=== PATIENT | female | born 1985 | race Caucasian/White ===

== ENCOUNTER 2017-03-20 09:12 | Inpatient (IN) | payer OTHER ==
[2017-03-20] MEDS ORDERED: RX INFO: IV CONTRAST WAS GIVEN 1 EACH MISC MISCELLANE PRN (09:44)
[2017-03-20] MEDS ORDERED: HYDROmorphone 2 MG/ML 1 ML SYRINGE IVP STA (09:47)
[2017-03-20] MEDS ORDERED: ONDANSETRON 4 MG/2 ML VIAL IVP STA (09:47)
[2017-03-20 09:55] LABS: Basophils % (A) 0 %; Eosinophils # (A) 0.1 k/uL (0-0.7); Eosinophils % (A) 1 %; HCT 37.3 % (34.0-46.0); HGB 12.1 gm/dL (11.4-16.0); Lymphocytes # (A) 1.1 k/uL (1.0-4.8); Lymphocytes % (A) 13 %; MCH 28.7 pg (25.0-35.0); MCHC 32.6 g/dL (31.0-37.0); MCV 88.2 fL (80.0-100.0); Mean Platelet Volume 7.9; Monocytes # (A) 0.4 k/uL (0-1.0); Monocytes % (A) 5 %; Neutrophils # (A) 7.1 k/uL (1.3-7.7); Neutrophils % (A) 81 %; Platelet Count 217 k/uL (150-450); RBC 4.22 m/uL (3.80-5.40); WBC 8.8 k/uL (3.8-10.6)
[2017-03-20 10:07] LABS: Partial Thromboplastin Time 22.5 sec (22.0-30.0); Prothrombin Time 10.1 sec (9.0-12.0)
[2017-03-20 10:11] LABS: ALT 30 U/L (9-52); AST 16 U/L (14-36); Albumin 3.8 g/dL (3.5-5.0); Alkaline Phosphatase 61 U/L (38-126); Anion Gap 8 mmol/L; Blood Urea Nitrogen 11 mg/dL (7-17); Calcium 9.2 mg/dL (8.4-10.2); Carbon Dioxide 30 mmol/L (22-30); Chloride 103 mmol/L (98-107); Glucose 99 mg/dL (74-99); Magnesium 1.9 mg/dL (1.6-2.3); Potassium 4.1 mmol/L (3.5-5.1); Sodium 141 mmol/L (137-145); Total Bilirubin 0.9 mg/dL (0.2-1.3); Total Protein 6.4 g/dL (6.3-8.2)
[2017-03-20 10:18] LABS: Creatine Kinase 37 U/L (30-135)
--- NOTE | 2017-03-20 10:20 | ED ---
General Adult HPI <HarshadAbimael - Last Filed: 03/20/17 11:55> - General Source: patient, RN notes reviewed Mode of arrival: EMS Limitations: no limitations <Jose Vo - Last Filed: 03/20/17 11:59> - General Chief complaint: Shortness of Breath Stated complaint: Right Flank Pain Time Seen by Provider: 03/20/17 09:31 - History of Present Illness Initial comments: Patient is a 31-year-old female who presents emergency room today by EMS, with chief complaint of right-sided chest pain. Patient does admit that she woke up this morning having increased pain to the right side of the chest. She admits that she broke her ankle approximately one week ago had a have surgery for fixation that was done at [facility] and [place]. She states that her is away for work so she is appear in [place] her parents. She states that she did take pain medication last night has not helped with his pain is new. Patient doesn't feel short of breath. She denies any other complaints or symptoms. Patient denies any recent fever, chills, abdominal pain , nausea or vomiting, numbness or tingling, dysuria or hematuria, constipation or diarrhea, headaches or visual changes, or any other complaints. (Jose Vo) - Related Data Home Medications Medication Instructions Recorded Confirmed Docusate [Colace] 100 mg PO DAILY PRN 03/20/17 03/20/17 Polyethylene Glycol 3350 [Miralax] 17 gm PO DAILY PRN 03/20/17 03/20/17 oxyCODONE-APAP 5-325MG [Percocet 1 - 2 tab PO Q4-6H PRN 03/20/17 03/20/17 5-325 mg] Allergies Allergy/AdvReac Type Severity Reaction Status Date / Time No Known Allergies Allergy Verified 03/20/17 09:54 Review of Systems ROS Other: All systems not noted in ROS Statement are negative. <Abimael Patricia - Last Filed: 03/20/17 11:55> ROS Other: All systems not noted in ROS Statement are negative. <Jose Vo - Last Filed: 03/20/17 11:59> ROS Statement: Those systems with pertinent positive or pertinent negative responses have been documented in the HPI. Past Medical History Past Medical History: No Reported History History of Any Multi-Drug Resistant Organisms: None Reported Past Surgical History: Orthopedic Surgery Past Psychological History: No Psychological Hx Reported Smoking Status: Former smoker Past Alcohol Use History: None Reported Past Drug Use History: None Reported <Jose Vo - Last Filed: 03/20/17 11:59> General Exam <Abimael Patricia - Last Filed: 03/20/17 11:55> Limitations: no limitations <TavoJose - Last Filed: 03/20/17 11:59> - General Exam Comments Initial Comments: General: The patient is awake and alert, in no distress, and does not appear acutely ill. Eye: Pupils are equal, round and reactive to light, extra-ocular movements are intact. No nystagmus. There is normal conjunctiva bilaterally. No signs of icterus. Ears, nose, mouth and throat: There are moist mucous membranes and no oral lesions. Neck: The neck is supple, there is no tenderness or JVD. Cardiovascular: Tachycardic. No murmur, rub or gallop is appreciated. Respiratory: Lungs are clear to auscultation, respirations are non-labored, breath sounds are equal. No wheezes, stridor, rales, or rhonchi. Gastrointestinal: Soft, non-distended, non-tender abdomen without masses or organomegaly noted. There is no rebound or guarding present. No CVA tenderness. Bowel sounds are unremarkable. Musculoskeletal: Normal ROM, no tenderness. Strength 5/5. Sensation intact. Pulses equal bilaterally 2+. Neurological: A&O x 3. CN II-XII intact, There are no obvious motor or sensory deficits. Coordination appears grossly intact. Speech is normal. Skin: Skin is warm and dry and no rashes or lesions are noted. Psychiatric: Cooperative, appropriate mood & affect, normal judgment. (Jose Vo) Course <Abimael Patricia - Last Filed: 03/20/17 11:55> <Jose Vo - Last Filed: 03/20/17 11:59> Vital Signs 03/20/17 03/20/17 03/20/17 09:24 09:56 11:00 Temperature 98.3 F Pulse Rate 105 H 102 H 118 H Respiratory 20 20 26 H Rate Blood Pressure 122/82 125/71 122/77 O2 Sat by Pulse 100 99 97 Oximetry - Reevaluation(s) Reevaluation #1: 01/18/18 11:55 PA supervision: I did personally do a [id number] evaluation the patient did discuss the findings her and her family are is present. I also did discuss case with the admitting physician and with the radiologist. Patient does have evidence of bilateral pulmonary emboli. She is slightly tachycardic but otherwise hemodynamically stable. I do agree with the assessment and plan. ( Abimael Patricia) Medical Decision Making - Lab Data Result diagrams: 03/20/17 09:35 03/20/17 09:35 <Abimael Patricia - Last Filed: 03/20/17 11:55> - Lab Data Result diagrams: 03/20/17 09:35 03/20/17 09:35 <Jose Vo - Last Filed: 03/20/17 11:59> - Medical Decision Making Patient's CT reviewed and does show evidence for bilateral. He has been started on heparin. The emergency room. Patient will be admitted to the hospital. She is aware of the plan states her family. (Jose Vo) - Lab Data Lab Results 03/20/17 03/20/17 03/20/17 Range/Units 09:35 09:35 09:35 WBC 8.8 (3.8-10.6) k/uL RBC 4.22 (3.80-5.40) m/uL Hgb 12.1 (11.4-16.0) gm/dL Hct 37.3 (34.0-46.0) % MCV 88.2 (80.0-100.0) fL MCH 28.7 (25.0-35.0) pg MCHC 32.6 (31.0-37.0) g/dL RDW 13.0 (11.5-15.5) % Plt Count 217 (150-450) k/uL Neutrophils % 81 % Lymphocytes % 13 % Monocytes % 5 % Eosinophils % 1 % Basophils % 0 % Neutrophils # 7.1 (1.3-7.7) k/uL Lymphocytes # 1.1 (1.0-4.8) k/uL Monocytes # 0.4 (0-1.0) k/uL Eosinophils # 0.1 (0-0.7) k/uL Basophils # 0.0 (0-0.2) k/uL PT (9.0-12.0) sec INR (<1.2) APTT (22.0-30.0) sec Sodium 141 (137-145) mmol/L Potassium 4.1 (3.5-5.1) mmol/L Chloride 103 (98-107) mmol/L Carbon Dioxide 30 (22-30) mmol/L Anion Gap 8 mmol/L BUN 11 (7-17) mg/dL Creatinine 0.67 (0.52-1.04) mg/dL Est GFR (MDRD) Af Amer >60 (>60 ml/min/1.73 sqM) Est GFR (MDRD) Non-Af >60 (>60 ml/min/1.73 sqM) Glucose 99 (74-99) mg/dL Calcium 9.2 (8.4-10.2) mg/dL Magnesium 1.9 (1.6-2.3) mg/dL Total Bilirubin 0.9 (0.2-1.3) mg/dL AST 16 (14-36) U/L ALT 30 (9-52) U/L Alkaline Phosphatase 61 (38-126) U/L Total Creatine Kinase 37 (30-135) U/L CK-MB (CK-2) <0.2 (0.0-2.4) ng/mL CK-MB (CK-2) Rel Index Troponin I <0.012 (0.000-0.034) ng/mL Total Protein 6.4 (6.3-8.2) g/dL Albumin 3.8 (3.5-5.0) g/dL 03/20/17 Range/Units 09:35 WBC (3.8-10.6) k/uL RBC (3.80-5.40) m/uL Hgb (11.4-16.0) gm/dL Hct (34.0-46.0) % MCV (80.0-100.0) fL MCH (25.0-35.0) pg MCHC (31.0-37.0) g/dL RDW (11.5-15.5) % Plt Count (150-450) k/uL Neutrophils % % Lymphocytes % % Monocytes % % Eosinophils % % Basophils % % Neutrophils # (1.3-7.7) k/uL Lymphocytes # (1.0-4.8) k/uL Monocytes # (0-1.0) k/uL Eosinophils # (0-0.7) k/uL Basophils # (0-0.2) k/uL PT 10.1 (9.0-12.0) sec INR 1.0 (<1.2) APTT 22.5 (22.0-30.0) sec Sodium (137-145) mmol/L Potassium (3.5-5.1) mmol/L Chloride (98-107) mmol/L Carbon Dioxide (22-30) mmol/L Anion Gap mmol/L BUN (7-17) mg/dL Creatinine (0.52-1.04) mg/dL Est GFR (MDRD) Af Amer (>60 ml/min/1.73 sqM) Est GFR (MDRD) Non-Af (>60 ml/min/1.73 sqM) Glucose (74-99) mg/dL Calcium (8.4-10.2) mg/dL Magnesium (1.6-2.3) mg/dL Total Bilirubin (0.2-1.3) mg/dL AST (14-36) U/L ALT (9-52) U/L Alkaline Phosphatase (38-126) U/L Total Creatine Kinase (30-135) U/L CK-MB (CK-2) (0.0-2.4) ng/mL CK-MB (CK-2) Rel Index Troponin I (0.000-0.034) ng/mL Total Protein (6.3-8.2) g/dL Albumin (3.5-5.0) g/dL Disposition <Abimael Patricia - Last Filed: 03/20/17 11:55> Time of Disposition: 11:38 <Jose Vo - Last Filed: 03/20/17 11:59> Clinical Impression: Bilateral pulmonary embolism Disposition: ADMITTED IP TO THIS [facility] Condition: Stable Referrals: None,Stated [Primary Care Provider] - 1-2 days
[2017-03-20 10:31] LABS: Creatine Kinase MB <0.2 ng/mL (0.0-2.4); Troponin I <0.012 ng/mL (0.000-0.034)
--- NOTE | 2017-03-20 11:05 | CT ---
EXAMINATION TYPE: CT angio chest DATE OF EXAM: 03/20/2017 COMPARISON: NONE HISTORY: Right sided lower chest pain with severe shortness of breath today. Post OP Ankle surgery o n 03/17/17 CT DLP: 161.2 mGycm CONTRAST: CT chest with contrast and 3D reconstruction with MIP imaging is performed with IV Contrast, patient injected with 100 mL of Omnipaque 300. Contrast-enhanced CT of the chest was performed through the course of the pulmonary arteries with reymundo g and mediastinal window settings submitted. 3D reconstruction with MIP imaging was also performed. PULMONARY ARTERIES: Bilateral pulmonary embolism right greater than left. Involvement of the right ma in pulmonary artery as well as secondary and tertiary branches. On the left there is mild involvement of secondary and tertiary branches to the left lower lobe. Minimal involvement right upper lobe and no involvement left upper lobe. No saddle component identified. LUNGS: Small right-sided pleural effusion. Patchy infiltrate right lower lobe. Atelectasis left lower lobe. Groundglass opacity right upper lobe. MEDIASTINUM: Thoracic aorta is of normal caliber . The heart is not enlarged. No evidence for media stinal mass. No mediastinal lymph nodes greater than 1cm. HILAR STRUCTURES: No evidence for mass. No hilar lymph nodes greater than 1 cm. UPPER ABDOMEN: No significant abnormality is seen. IMPRESSION: 1. Bilateral pulmonary embolism right greater than left with moderate involvement on the right and m ild involvement on the left. Scattered areas of infiltrate right lower lobe with left basilar atelect asis and small effusions.
[2017-03-20] MEDS ORDERED: HEPARIN SODIUM,PORCINE 5,000 UNIT/ML 1 ML VIAL IV STA (11:10)
[2017-03-20] MEDS: SODIUM CHLORIDE 0.9% 500 ML IV SCH (11:30)
[2017-03-20] MEDS: HEPARIN SOD,PORK IN 0.45% NACL 25,000 UNIT in 0.45% NACL 1 500ML.BAG IV SCH (11:31)
[2017-03-20] MEDS ORDERED: HYDROmorphone 1 MG/ML 1 ML SYRINGE IVP PRN (11:59)
[2017-03-20] MEDS ORDERED: ACETAMINOPHEN TAB 325 MG TAB PO PRN (11:59)
[2017-03-20] MEDS ORDERED: NALOXONE 0.4 MG/ML 1 ML VIAL IV PRN (11:59)
[2017-03-20] MEDS ORDERED: LORazepam 2 MG/ML INJ IV PRN (11:59)
[2017-03-20] MEDS ORDERED: ONDANSETRON 4 MG/2 ML VIAL IVP PRN (11:59)
[2017-03-20] MEDS: HYDROmorphone 0.5 MG/0.5 ML SYRINGE IVP PRN ×4 (12:54→22:47)
--- NOTE | 2017-03-20 15:05 | P.HPIM ---
History of Present Illness H&P Date: 03/20/17 Chief Complaint: Right-sided chest pain Patient is a 31-year-old female with a known history of recent right lower activity bimalleolar fracture surgery on 03/17/2017 came to ER with complaints of right-sided chest pain. Patient woke up this morning and felt chest discomfort and pain along with deep breathing. No fever no chills. No cough or sputum production. Patient says that she fell on the ice on 12 of March and sustained bimalleolar fracture. Patient had surgery done on 17 of March at [facility] and was sent home with pain medications. Patient denied taking any aspirin or warfarin at home. Patient is currently staying with her parents house. Otherwise patient denied any nausea vomiting or abdominal pain. She denies any other complaints or symptoms. Patient denies any recent fever, chills, abdominal pain, nausea or vomiting, numbness or tingling, dysuria or hematuria, constipation or diarrhea, headaches or visual changes, or any other complaints. Denied any history of blood clots in the family. CT angiogram showed bilateral pulmonary embolism right greater than left with a moderate involvement in the right and mid involvement on the left. Scattered areas of infiltrate right lower lobe with the left basilar atelectasis and small effusions. Review of Systems Constitutional: Patient denies any fever or chills . No generalized weakness or weight loss. Abdomen: Patient denied nausea vomiting and diarrhea and abdominal pain. Cardiovascular: Patient does have chest pain or shortness of breath. No palpitations no leg swelling Respiratory: patient denied any cough is from production. No shortness of breath Neurologic: Patient denied any numbness or tingling headache. Musculoskeletal: Patient denies any complaints of joint swelling or deformity. Skin: Negative Psychiatric: Negative Endocrine: No heat or cold intolerance. No recent weight gain. Genitourinary: No dysuria or hematuria. All other 14 point ROS negative except the above Past Medical History Past Medical History: No Reported History Additional Past Medical History / Comment(s): 02/28/17 Pt gave and baby was a stillborn, 03/12/17 R ankle fracture with surgical repair on 03/17/17, recent constipation-pt states no BM since 03/12/17. History of Any Multi-Drug Resistant Organisms: None Reported Past Surgical History: Orthopedic Surgery Additional Past Surgical History / Comment(s): 1/15/18 ORIF R ankle at [facility] in [place], R knee arthroscopy, wisdom teeth extractions, sinus surgery. Past Anesthesia/Blood Transfusion Reactions: No Reported Reaction Past Psychological History: No Psychological Hx Reported Additional Psychological History / Comment(s): Pt resides with her spouse and 2 children. Her spouse is in [facility] (he is a bed manager). She is currently staying with her parents here in [place] due to recently delivering a stillborn baby and fracturing her ankle then had surgery. Smoking Status: Never smoker Past Alcohol Use History: None Reported Past Drug Use History: None Reported - Past Family History Father Family Medical History: No Reported History Additional Family Medical History / Comment(s): Father is healthy Mother Family Medical History: No Reported History Additional Family Medical History / Comment(s): Mother is healthy. Medications and Allergies Home Medications Medication Instructions Recorded Confirmed Type Docusate [Colace] 100 mg PO DAILY PRN 03/20/17 03/20/17 History Polyethylene Glycol 3350 [Miralax] 17 gm PO DAILY PRN 03/20/17 03/20/17 History oxyCODONE-APAP 5-325MG [Percocet 1 - 2 tab PO Q4-6H PRN 03/20/17 03/20/17 History 5-325 mg] Allergies Allergy/AdvReac Type Severity Reaction Status Date / Time No Known Allergies Allergy Verified 03/20/17 09:54 Physical Exam Vitals: Vital Signs Temp Pulse Resp BP Pulse Ox 03/20/17 14:29 109 H 18 109/66 98 03/20/17 12:48 111 H 18 114/77 98 03/20/17 11:00 118 H 26 H 122/77 97 03/20/17 09:56 102 H 20 125/71 99 03/20/17 09:24 98.3 F 105 H 20 122/82 100 Intake and Output 03/19/17 03/20/17 03/20/17 22:59 06:59 14:59 Other: Weight 71.668 kg Patient Weight 03/21/17 06:59 Weight 71.668 kg PHYSICAL EXAMINATION: Patient is lying in the bed comfortably, no acute distress, awake alert and oriented.. HEENT: Normocephalic. Neck is supple. Pupils reactive. Nostrils clear. Oral cavity is moist. Ears reveal no drainage. Neck reveals no JVD, carotid bruits, or thyromegaly. CHEST EXAMINATION: Trachea is central. Symmetrical expansion. Lung kruse clear to auscultation and percussion. CARDIAC: Normal S1, S2 with no gallops. No murmurs , tachycardic ABDOMEN: Soft. Bowel sounds normal. No organomegaly. No abdominal bruits. Extremities: reveal no edema. No clubbing or cyanosis. Right lower activity cast in place Neurologically awake, alert, oriented x3 with well-coordinated movements. No focal deficits noted Skin: No rash or skin lesions. Psychiatric: Cooperative. Nonsuicidal Musculoskeletal: No joint swelling or deformity. Normal range of motion. Results CBC & Chem 7: 03/20/17 09:35 03/20/17 09:35 Thrombosis Risk Factor Assmnt - Choose All That Apply Any of the Below Risk Factors Present?: Yes Each Factor Represents 1 point: or Other Risk Factors: Yes Each Risk Factor Represents 3 Points: History of DVT/PE Other congenital or acquired thrombophilia - If yes, enter type in comment: No Each Risk Factor Represents 5 Points: Hip, pelvis, or leg fracture (< 1 month) Thrombosis Risk Factor Assessment Total Risk Factor Score: 9 Thrombosis Risk Factor Assessment Level: High Risk Assessment and Plan Assessment: Provoked Acute bilateral pulmonary embolism. Right greater than left. Accidental Fall and Recent right lower activity bimalleolar fracture status post repair on 03/17/2017 Recent miscarriage about 10 days back. Constipation Plan: Patient will be continued on heparin IV. Continue with pain medications and bowel regimen. Will follow closely. Further recommendations based on clinical course. Time with Patient: Greater than 30
[2017-03-20] MEDS ORDERED: BISACODYL 10 MG SUPP RECTAL PRN (17:45)
[2017-03-20] MEDS: DOCUSATE 100 MG CAP PO SCH (20:45)
[2017-03-21] MEDS: HYDROmorphone 0.5 MG/0.5 ML SYRINGE IVP PRN ×7 (02:37→21:15)
[2017-03-21] MEDS: HEPARIN SOD,PORK IN 0.45% NACL 25,000 UNIT in 0.45% NACL 1 500ML.BAG IV SCH ×2 (06:26→23:30)
[2017-03-21] MEDS: DOCUSATE 100 MG CAP PO SCH ×2 (07:30→20:50)
[2017-03-21] MEDS: POLYETHYLENE GLYCOL 3350 17 GM POWD.PACK PO SCH (07:30)
[2017-03-21 07:46] LABS: Basophils % (A) 0 %; Eosinophils # (A) 0.1 k/uL (0-0.7); Eosinophils % (A) 1 %; HCT 36.6 % (34.0-46.0); HGB 11.8 gm/dL (11.4-16.0); Lymphocytes # (A) 1.2 k/uL (1.0-4.8); Lymphocytes % (A) 13 %; MCH 28.5 pg (25.0-35.0); MCHC 32.3 g/dL (31.0-37.0); MCV 88.2 fL (80.0-100.0); Mean Platelet Volume 7.7; Monocytes # (A) 0.7 k/uL (0-1.0); Monocytes % (A) 7 %; Neutrophils # (A) 7.4 k/uL (1.3-7.7); Neutrophils % (A) 78 %; Platelet Count 210 k/uL (150-450); RBC 4.15 m/uL (3.80-5.40); RDW 12.8 % (11.5-15.5); WBC 9.5 k/uL (3.8-10.6)
[2017-03-21 07:50] LABS: INR 1.1 (<1.2); Partial Thromboplastin Time 44.1 sec (22.0-30.0); Prothrombin Time 10.9 sec (9.0-12.0)
[2017-03-21 07:56] LABS: ALT 27 U/L (9-52); AST 20 U/L (14-36); Albumin 3.6 g/dL (3.5-5.0); Alkaline Phosphatase 63 U/L (38-126); Anion Gap 7 mmol/L; Blood Urea Nitrogen 7 mg/dL (7-17); Calcium 9.1 mg/dL (8.4-10.2); Carbon Dioxide 29 mmol/L (22-30); Chloride 100 mmol/L (98-107); Glucose 102 mg/dL (74-99); Potassium 4.3 mmol/L (3.5-5.1); Sodium 136 mmol/L (137-145); Total Bilirubin 1.7 mg/dL (0.2-1.3); Total Protein 6.2 g/dL (6.3-8.2)
[2017-03-21] MEDS ORDERED: HEPARIN SODIUM,PORCINE 5,000 UNIT/ML 1 ML VIAL IV STA (08:31)
--- NOTE | 2017-03-21 10:26 | US ---
EXAMINATION TYPE: US venous doppler duplex LE BI DATE OF EXAM: 03/21/2017 10:17 AM COMPARISON: NONE CLINICAL HISTORY: 31-year-old female rule out DVT, hx of pulmonary embolism SIDE PERFORMED: Bilateral TECHNIQUE: The lower extremity deep venous system is examined utilizing real time linear array sonog tona with graded compression, doppler sonography and color-flow sonography. FINDINGS: VESSELS IMAGED: External Iliac Vein (EIV) Common Femoral Vein Deep Femoral Vein Greater Saphenous Vein * Femoral Vein Popliteal Vein Small Saphenous Vein * Proximal Calf Veins (* superficial vessels) Right Leg: Negative for DVT-unable to visualize distal pop vein, or proximal calf due to splint on r ight lower leg. Left Leg: Negative for DVT IMPRESSION: 1. Right lower extremity: Unable to visualize the lower popliteal vein or upper calf veins due to pat ient's splint. Otherwise, no evidence for DVT within the remaining proximal aspect of the extremity. 2. Left lower extremity: No evidence for DVT imaged from the groin to the upper calf.
--- NOTE | 2017-03-21 11:40 | ECHOF ---
Referral Reason:rule out RV strain, Hx of edel PE's MEASUREMENTS -------- HEIGHT: 172.7 cm WEIGHT: 71.7 kg BP: 109/71 RVIDd: 2.1 cm (< 3.3) IVSd: 0.7 cm (0.6 - 1.1) LVIDd: 4.4 cm (3.9 - 5.3) LVPWd: 0.8 cm (0.6 - 1.1) IVSs: 1.3 cm LVIDs: 2.7 cm LVPWs: 1.4 cm LAESV Index (A-L): 15.18 ml/m Ao Diam: 3.2 cm (2.0 - 3.7) AV Cusp: 1.9 cm (1.5 - 2.6) LA Diam: 2.2 cm (2.7 - 3.8) MV E Elier: 0.91 m/s MV DecT: 245 ms MV A Elier: 0.72 m/s MV E/A Ratio: 1.26 RAP: 5.00 mmHg RVSP: 25.69 mmHg FINDINGS -------- Sinus rhythm. This was a technically adequate study. The left ventricular size is normal. Left ventricular wall thickness is normal. Overall left vent ricular systolic function is normal with, an EF between 55 - 60 %. The right ventricle is normal in size and function. Normal LA size by volume 22+/-6 ml/m2. The right atrium is normal in size. The aortic valve is trileaflet, and appears structurally normal. No aortic stenosis or regurgitation. The mitral valve leaflets are mildly thickened. There is trace to mild mitral regurgitation. Trace tricuspid regurgitation present. Right ventricular systolic pressure is normal at < 35 mmHg. There is no evidence of pulmonary hypertension. Trace/mild (physiologic) pulmonic regurgitation. The aortic root size is normal. Normal inferior vena cava with normal inspiratory collapse consistent with estimated right atrial pre ssure of 5 mmHg. The pericardium is normal. There is no pericardial effusion. CONCLUSIONS -------- 1. Sinus rhythm. 2. This was a technically adequate study. 3. The left ventricular size is normal. 4. Left ventricular wall thickness is normal. 5. Overall left ventricular systolic function is normal with, an EF between 55 - 60 %. 6. Normal LA size by volume 22+/-6 ml/m2. 7. The aortic valve is trileaflet, and appears structurally normal. No aortic stenosis or regurgitati on. 8. The mitral valve leaflets are mildly thickened. 9. There is trace to mild mitral regurgitation. 10. Trace tricuspid regurgitation present. 11. Right ventricular systolic pressure is normal at < 35 mmHg. 12. There is no evidence of pulmonary hypertension. 13. Trace/mild (physiologic) pulmonic regurgitation. 14. The aortic root size is normal. 15. There is no pericardial effusion. TEST AND BALANCE ENGINEER: Harman Ledesma RDCS
[2017-03-21] MEDS: SODIUM CHLORIDE 0.9% 500 ML IV SCH (11:41)
--- NOTE | 2017-03-21 12:45 | P.CNPUL ---
History of Present Illness Consult date: 03/21/17 Requesting physician: Noah Valero Reason for consult: dyspnea, chest pain, abnormal CXR/CT Chief complaint: Acute onset right-sided chest pain, dyspnea History of present illness: Cari is a 31-year-old white female patient, who presented to the emergency department on 03/20/2017 at 0912 in the morning per EMS, with complaints of acute onset right-sided chest pain that was exacerbated by deep inspiration sharp in nature and relieved by shallow breathing. She also felt very dyspneic. Patient states that on 03/12/2017 she fell on ice and broke her right ankle, and on 03/17/2017 she had it surgically repaired at [facility] in [place] and was discharged home on 03/18/2017. She states there was no anticoagulation prescribed, patient was sent home on stool softeners and pain medications. No aspirin. Also on 02/28/2017 patient had a miscarriage, she was 18 weeks along, she went for her regular checkup, but there was no heartbeat, patient was then induced. The baby was estimated to have at 15 weeks. Patient's vaginal bleeding had since significantly decreased, currently down to just slight spotting. She was supposed to have a follow-up appointment with her [facility] this week. Is not aware of any clotting disorders in her family , is a lifetime nonsmoker. Patient is also complaining of significant constipation, has not had a bowel movement since before surgery. CTA chest on showed bilateral pulmonary embolism right greater than the left with moderate involvement of the right and mild involvement on the left. Scattered areas of infiltrate right lower lobe with a left basilar atelectasis and small effusions. EKG showed sinus tachycardia with a rate of 109. Patient was started on IV heparin, Percocet, IV Dilaudid, MiraLAX, and Dulcolax suppository along with Colace, and admitted to medical surgical floor for further treatment. She is maintaining normal blood pressures, 109/71, she is on 2 L per nasal cannula with O2 sat at 99%. She is afebrile. Her respirations are shallow, there is significant right sided chest pain which is being medicated with IV Dilaudid. Review of Systems All systems: negative Constitutional: Denies chills, Denies fever Eyes: denies blurred vision, denies pain Ears, nose, mouth and throat: Denies headache, Denies sore throat Cardiovascular: Denies chest pain, Denies shortness of breath Respiratory: Reports dyspnea, Reports pain on inspiration, Denies cough Gastrointestinal: Denies abdominal pain, Denies diarrhea, Denies nausea, Denies vomiting Genitourinary: Denies dysuria, Denies hematuria Musculoskeletal: Denies myalgias Integumentary: Denies pruritus, Denies rash Neurological: Denies numbness, Denies weakness Psychiatric: Denies anxiety, Denies depression Endocrine: Denies fatigue, Denies weight change Past Medical History Past Medical History: No Reported History Additional Past Medical History / Comment(s): 02/28/17 Pt gave and baby was a stillborn, 03/12/17 R ankle fracture with surgical repair on 03/17/17, recent constipation-pt states no BM since 03/12/17. History of Any Multi-Drug Resistant Organisms: None Reported Past Surgical History: Orthopedic Surgery Additional Past Surgical History / Comment(s): 03/17/17 ORIF R ankle at [facility] in [place], R knee arthroscopy, wisdom teeth extractions, sinus surgery. Past Anesthesia/Blood Transfusion Reactions: No Reported Reaction Past Psychological History: No Psychological Hx Reported Additional Psychological History / Comment(s): Pt resides with her spouse and 2 children. Her spouse is in [facility] (he is a wood drill operator). She is currently staying with her parents here in [place] due to recently delivering a stillborn baby and fracturing her ankle then had surgery. Smoking Status: Never smoker Past Alcohol Use History: None Reported Past Drug Use History: None Reported - Past Family History Father Family Medical History: No Reported History Additional Family Medical History / Comment(s): Father is healthy Mother Family Medical History: No Reported History Additional Family Medical History / Comment(s): Mother is healthy. Medications and Allergies Home Medications Medication Instructions Recorded Confirmed Type Docusate [Colace] 100 mg PO DAILY PRN 03/20/17 03/20/17 History Polyethylene Glycol 3350 [Miralax] 17 gm PO DAILY PRN 03/20/17 03/20/17 History oxyCODONE-APAP 5-325MG [Percocet 1 - 2 tab PO Q4-6H PRN 03/20/17 03/20/17 History 5-325 mg] Allergies Allergy/AdvReac Type Severity Reaction Status Date / Time No Known Allergies Allergy Verified 03/20/17 09:54 Physical Exam Vitals: Vital Signs Temp Pulse Pulse Resp BP BP Pulse Ox 03/21/17 07:00 98.2 F 95 16 109/71 99 03/20/17 23:00 98.5 F 100 16 108/67 96 03/20/17 14:56 98.7 F 111 H 18 114/73 100 03/20/17 14:29 109 H 18 109/66 98 03/20/17 12:48 111 H 18 114/77 98 Intake and Output 03/20/17 03/21/17 03/21/17 22:59 06:59 14:59 Intake Total 242.75 465.3 51.17 Balance 242.75 465.3 51.17 Intake: Intake, IV Titration 242.75 465.3 51.17 Amount Heparin Sod,Pork in 0.45% 182.75 305.3 51.17 NaCl 25,000 unit In 0.45 % NaCl 1 500ml.bag @ 18 UNITS/KG/HR 25.8 mls/hr IV .[id number] [facility] Rx#: [id number] Sodium Chloride 0.9% 500 60 160 ml @ 20 mls/hr IV .Q24H [facility] Rx#:[id number] Other: Voiding Method Bedpan Bedpan Bedside Commode Bedpan # Voids 1 1 GENERAL EXAM: Alert, pleasant, 31-year-old white female, in mild distress, from right-sided sharp pain exacerbated by deep inspiration. Her respirations are shallow and tachypneic. Patient is observed to be dyspneic with conversation HEAD: Normocephalic/atraumatic. EYES: Normal reaction of pupils, equal size. Conjunctiva pink, sclera white. NOSE: Clear with pink turbinates. THROAT: No erythema or exudates. NECK: No masses, no JVD, no thyroid enlargement, no adenopathy. CHEST: No chest wall deformity. Symmetrical expansion. LUNGS: Diminished air entry on the right, clear on the left, no rhonchi, no wheezes noted. CVS: Regular rate and rhythm, normal S1 and S2, no gallops, no murmurs, no rubs ABDOMEN: Soft, nontender. No hepatosplenomegaly, normal bowel sounds, no guarding or rigidity. EXTREMITIES: No clubbing, no edema, no cyanosis, 2+ pulses and upper and lower extremities. Right lower leg is placed in what appears to be postsurgical half cast. Right foot toes are warm and dry, with immediate capillary refill. MUSCULOSKELETAL: Muscle strength and tone normal. SPINE: No scoliosis or deformity SKIN: No rashes CENTRAL NERVOUS SYSTEM: Alert and oriented -3. No focal deficits, tone is normal in all 4 extremities. PSYCHIATRIC: Alert and oriented -3. Appropriate affect. Intact judgment and insight. Results - Laboratory Findings CBC and BMP: 03/21/17 07:11 03/21/17 07:11 PT/INR, D-dimer PT 10.9 sec (9.0-12.0) 03/21/17 07:11 INR 1.1 (<1.2) 03/21/17 07:11 Abnormal lab findings: Abnormal Labs 03/20/17 03/21/17 03/21/17 17:17 01:07 07:11 APTT 55.8 H 47.8 H 44.1 H Sodium Glucose Total Bilirubin Total Protein 03/21/17 07:11 APTT Sodium 136 L Glucose 102 H Total Bilirubin 1.7 H Total Protein 6.2 L - Diagnostic Findings CT scan - chest: report reviewed Additional studies: Twelve-lead EKG, 2-D echocardiogram, venous Doppler were reviewed Assessment and Plan Plan: Assessment: #1. Acute bilateral pulmonary embolisms, with right sided involvement more than the left. 2-D echo shows no sign of right ventricular strain, right ventricular systolic pressure is normal at less than 35 mmHg, no evidence of pulmonary hypertension, trace tricuspid regurgitation was noted. Patient was started on IV heparin #2. Acute dyspnea and sharp right-sided chest pain, secondary to the above #3. Right bimalleolar ankle fracture, status post ORIF, on 03/17/2017, patient was discharged home on 03/18/2017, with no anticoagulation. Surgery was done at [facility] in [place] #4. Recent miscarriage, at the 18th week of gestation, the baby was estimated to have at the 15th week of gestation. Patient underwent induction and delivery. Denies any other history of miscarriages. Has 2 other healthy, living children #5. Lifetime nonsmoker #6. Opiate-induced constipation Plan: Continue IV heparin, we will check her coverage for Xarelto. If her insurance covers Xarelto we will start her on Xarelto today and stop the heparin after that. We will add DuoNeb nebulized treatments, continue with pain control. Pulmonary toileting, incentive spirometer to the bedside. Echocardiogram and venous Doppler results were reviewed, she is negative for DVT, and there is no evidence of right ventricular strain. I performed a history & physical examination of the patient and discussed their management with my nurse practitioner, Gabriela Guevara. I reviewed the nurse practitioner's note and agree with the documented findings and plan of care. Lung sounds are positive for diminished air entry on the right, clear on the left .The findings and the impression was discussed with the patient. I attest to the documentation by the nurse practitioner. Time with Patient: Greater than 30
[2017-03-21 12:59] VITALS: BMI 24.0
[2017-03-21] MEDS: oxyCODONE-APAP 5-325MG 1 EACH TAB PO PRN (16:40)
[2017-03-21] MEDS ORDERED: HYDROmorphone 0.5 MG/0.5 ML SYRINGE IVP PRN (23:08)
--- NOTE | 2017-03-21 23:09 | P.PN ---
Subjective Progress Note Date: 03/21/17 Principal diagnosis: Bilateral pulmonary embolism Patient is a 31-year-old female with a known history of recent right lower activity bimalleolar fracture surgery on 03/17/2017 came to ER with complaints of right-sided chest pain. Patient woke up this morning and felt chest discomfort and pain along with deep breathing. No fever no chills. No cough or sputum production. Patient says that she fell on the ice on 12 of March and sustained bimalleolar fracture. Patient had surgery done on 17 of March at [facility] and was sent home with pain medications. Patient denied taking any aspirin or warfarin at home. Patient is currently staying with her parents house. Otherwise patient denied any nausea vomiting or abdominal pain. She denies any other complaints or symptoms. Patient denies any recent fever, chills, abdominal pain, nausea or vomiting, numbness or tingling, dysuria or hematuria, constipation or diarrhea, headaches or visual changes, or any other complaints. Denied any history of blood clots in the family. CT angiogram showed bilateral pulmonary embolism right greater than left with a moderate involvement in the right and mid involvement on the left. Scattered areas of infiltrate right lower lobe with the left basilar atelectasis and small effusions. 03/21/2017 Patient is still having chest pain with movement as well as with deep breathing. Continue to be on IV heparin. Bilateral lower admitted duplex is negative for any DVT. No fever no chills. No cough is from production. Pain is controlled with pain medications. Otherwise no nausea vomiting or abdominal pain. All other review of systems negative except the above Current medications reviewed. Objective - Vital Signs Vital signs: Vital Signs Temp 98.2 F 03/21/17 07:00 Pulse 95 03/21/17 07:00 Resp 16 03/21/17 07:00 BP 109/71 03/21/17 07:00 Pulse Ox 99 03/21/17 07:00 Intake & Output 03/20/17 03/21/17 03/21/17 18:59 06:59 18:59 Intake Total 182.75 525.3 701.17 Balance 182.75 525.3 701.17 Weight 71.668 kg 71.668 kg Intake: Intake, IV Titration 182.75 525.3 291.17 Amount Heparin Sod,Pork in 0.45% 182.75 305.3 51.17 NaCl 25,000 unit In 0.45 % NaCl 1 500ml.bag @ 18 UNITS/KG/HR 25.8 mls/hr IV .[id number] [facility] Rx#: [id number] Sodium Chloride 0.9% 500 220 240 ml @ 20 mls/hr IV .Q24H [facility] Rx#:[id number] Oral 410 Other: Voiding Method Bedpan Bedpan Bedside Commode Bedpan # Voids 1 1 2 - Exam Patient is lying in the bed comfortably, no acute distress, awake alert and oriented.. Patient seems to be drowsy HEENT: Normocephalic. Neck is supple. Pupils reactive. Nostrils clear. Oral cavity is moist. Ears reveal no drainage. Neck reveals no JVD, carotid bruits, or thyromegaly. CHEST EXAMINATION: Trachea is central. Symmetrical expansion. Lung kruse clear to auscultation and percussion. CARDIAC: Normal S1, S2 with no gallops. No murmurs , tachycardic ABDOMEN: Soft. Bowel sounds normal. No organomegaly. No abdominal bruits. Extremities: reveal no edema. No clubbing or cyanosis. Right lower activity cast in place Neurologically awake, alert, oriented x3 with well-coordinated movements. No focal deficits noted Skin: No rash or skin lesions. Psychiatric: Cooperative. Nonsuicidal Musculoskeletal: No joint swelling or deformity. Normal range of motion. - Labs CBC & Chem 7: 03/21/17 07:11 03/21/17 07:11 Labs: Abnormal Lab Results - Last 24 Hours (Table) 03/20/17 03/21/17 03/21/17 Range/Units 17:17 01:07 07:11 APTT 55.8 H 47.8 H 44.1 H (22.0-30.0) sec Sodium (137-145) mmol/L Glucose (74-99) mg/dL Total Bilirubin (0.2-1.3) mg/dL Total Protein (6.3-8.2) g/dL 03/21/17 Range/Units 07:11 APTT (22.0-30.0) sec Sodium 136 L (137-145) mmol/L Glucose 102 H (74-99) mg/dL Total Bilirubin 1.7 H (0.2-1.3) mg/dL Total Protein 6.2 L (6.3-8.2) g/dL Assessment and Plan Assessment: Provoked Acute bilateral pulmonary embolism. Right greater than left. Accidental Fall and Recent right lower activity bimalleolar fracture status post repair on 03/17/2017 Recent miscarriage about 10 days back. Constipation Plan: Patient will be continued on heparin IV. Continue with pain medications and bowel regimen. Will follow closely. Further recommendations based on clinical course. Time with Patient: Greater than 30
[2017-03-22] MEDS: HYDROmorphone 2 MG/ML 1 ML SYRINGE IVP PRN ×5 (00:39→20:41)
[2017-03-22] MEDS: DOCUSATE 100 MG CAP PO SCH ×2 (09:07→20:41)
[2017-03-22] MEDS: POLYETHYLENE GLYCOL 3350 17 GM POWD.PACK PO SCH (09:08)
--- NOTE | 2017-03-22 13:30 | P.PN ---
Subjective Progress Note Date: 03/22/17 Principal diagnosis: Pulmonary embolism Progress note dated 03/22/2017 This is a 31-year-old female with recent miscarriage and subsequent fall and right ankle fractures then developed a pulmonary embolism involving the right lung greater than the left lung. The patient's headache echocardiogram which showed no evidence of right ventricular strain or shifting of the intraventricular septum. Likewise, there is no evidence of right heart failure or right ventricular strain pattern on CT angiogram. The patient is having some pleuritic chest pain to the right chest. Apparently as she has coughed up blood on 2 occasions. We went ended up turning the heparin down by half. In addition, the patient has a recent right by mild malleolar fracture with open reduction internal fixation and recent miscarriage at the 18th week of gestation. She is a lifetime nonsmoker and has opiate-induced constipation. Other than that though she is doing reasonably well. The Doppler of the right lower extremity was negative. Echocardiogram was negative. The patient could be started on oral anticoagulant. I do recommend one of the new factor X a inhibitors. This is a provoked pulmonary M was admission the patient should be treated for 3 months. Objective - Vital Signs Vital signs: Vital Signs Temp 98.7 F 03/22/17 07:00 Pulse 104 H 03/22/17 07:00 Resp 18 03/22/17 07:00 BP 113/74 03/22/17 07:00 Pulse Ox 91 L 03/22/17 07:00 Intake & Output 03/21/17 03/22/17 03/22/17 18:59 06:59 18:59 Intake Total 917.553 215.905 270.837 Balance 917.553 215.905 270.837 Weight 71.668 kg 71.668 kg Intake: Intake, IV Titration 507.553 215.905 270.837 Amount Heparin Sod,Pork in 0.45% 267.553 215.905 270.837 NaCl 25,000 unit In 0.45 % NaCl 1 500ml.bag @ 18 UNITS/KG/HR 25.8 mls/hr IV .[id number] [facility] Rx#: [id number] Sodium Chloride 0.9% 500 240 ml @ 20 mls/hr IV .Q24H [facility] Rx#:[id number] Oral 410 Other: Voiding Method Bedside Commode Bedside Commode Bedpan # Voids 2 1 1 - Exam No acute distress, oriented 3. HEENT examination is grossly unremarkable. Mucous membranes are moist. No oral lesions. Neck supple. Full range of motion. No adenopathy thyromegaly or neck vein distention. Cardiovascular examination reveals regular rhythm rate. S1-S2 normal. No S3 or S4. No discernible murmur noted. Lungs reveal clear breath sounds. Her sounds are equal bilaterally. No adventitious lung sounds including wheezes rhonchi or crackles. Abdomen soft bowel sounds are heard. No masses or tenderness. Extremities reveal that the right lower extremity is in a cast. The left lower extremity is normal. Again there was no evidence of any DVT in the right lower extremity.. Skin is without rash or lesion. Neurologic examination is brief but nonfocal. - Labs CBC & Chem 7: 03/21/17 07:11 03/21/17 07:11 Labs: Abnormal Lab Results - Last 24 Hours (Table) 03/21/17 03/22/17 Range/Units 15:08 07:13 APTT 46.7 H 45.7 H (22.0-30.0) sec Assessment and Plan Assessment: Assessment Bilateral pulmonary embolism, right greater than left Recent miscarriage Recent right ankle fracture Plan: Plan dated 03/22/2017 The patient could be transitioned to a factor X a inhibitor. I believe she was approved for one of them. She needs good pain control. On the pain medication so she can take deep breaths but not too much cause mental status changes. She she use incentive spirometer every hour. Additional recommendations and suggestions are forthcoming. Prognosis is generally good. No additional recommendations are made. Continue to follow closely. Time with Patient: Less than 30
[2017-03-22] MEDS: APIXABAN 5 MG TAB PO SCH ×2 (13:54→20:41)
[2017-03-22] MEDS: oxyCODONE-APAP 5-325MG 1 EACH TAB PO PRN ×2 (13:56→18:48)
[2017-03-22] MEDS: SODIUM CHLORIDE 0.9% 500 ML IV SCH (13:59)
[2017-03-22] MEDS ORDERED: MAGNESIUM CITRATE 296 ML BOTTLE PO ONE (19:00)
[2017-03-23] MEDS: HYDROmorphone 2 MG/ML 1 ML SYRINGE IVP PRN ×5 (00:57→23:16)
[2017-03-23] MEDS: POLYETHYLENE GLYCOL 3350 17 GM POWD.PACK PO SCH (07:42)
[2017-03-23] MEDS: DOCUSATE 100 MG CAP PO SCH ×2 (07:42→20:44)
[2017-03-23] MEDS: APIXABAN 5 MG TAB PO SCH ×2 (07:45→20:39)
[2017-03-23] MEDS: oxyCODONE-APAP 5-325MG 1 EACH TAB PO PRN ×2 (10:27→20:39)
--- NOTE | 2017-03-23 13:43 | P.PN ---
Subjective Progress Note Date: 03/23/17 Principal diagnosis: Pulmonary embolism Progress note dated 03/22/2017 This is a 31-year-old female with recent miscarriage and subsequent fall and right ankle fractures then developed a pulmonary embolism involving the right lung greater than the left lung. The patient's headache echocardiogram which showed no evidence of right ventricular strain or shifting of the intraventricular septum. Likewise, there is no evidence of right heart failure or right ventricular strain pattern on CT angiogram. The patient is having some pleuritic chest pain to the right chest. Apparently as she has coughed up blood on 2 occasions. We went ended up turning the heparin down by half. In addition, the patient has a recent right by mild malleolar fracture with open reduction internal fixation and recent miscarriage at the 18th week of gestation. She is a lifetime nonsmoker and has opiate-induced constipation. Other than that though she is doing reasonably well. The Doppler of the right lower extremity was negative. Echocardiogram was negative. The patient could be started on oral anticoagulant. I do recommend one of the new factor X a inhibitors. This is a provoked pulmonary M was admission the patient should be treated for 3 months. Progress note dated 03/23/2017 31-year-old female with a recent miscarriage and subsequent fall and fracture of the right ankle. The patient needed repair of the right ankle fraction that was done. Subsequent to that she developed a pulmonary embolism involving primarily the right lower lobe but also in the left lung as well. The echocardiogram did not show any evidence of right heart strain or shifting of the intraventricular septum. In addition, there is no evidence of right heart strain or failure on the CT angiogram. The patient does have significant pleuritic chest pain. Particularly on the right side. It is worse with deep breathing coughing or sneezing. She was on IV heparin and recently has been switched to a factor X a inhibitor. She is doing better. She did cough up a couple bits of blood yesterday and had one episode today. Other than that though she seemed be doing reasonably well. She did have the open reduction internal fixation of the right malleolar fracture. Her miscarriage was in the 18th week of gestation. The Doppler of the right lower extremities was negative for DVT. Again the patient seemed be doing a bit better compared to yesterday. Objective - Vital Signs Vital signs: Vital Signs Temp 98.0 F 03/23/17 07:00 Pulse 109 H 03/23/17 08:00 Resp 18 03/23/17 08:00 BP 113/69 03/23/17 07:00 Pulse Ox 97 03/23/17 07:08 Intake & Output 03/22/17 03/23/17 03/23/17 18:59 06:59 18:59 Intake Total 2430.837 280 Balance 2430.837 280 Weight 71.668 kg Intake: Intake, IV Titration 270.837 160 Amount Heparin Sod,Pork in 0.45% 270.837 NaCl 25,000 unit In 0.45 % NaCl 1 500ml.bag @ 18 UNITS/KG/HR 25.8 mls/hr IV .[id number] [facility] Rx#: [id number] Sodium Chloride 0.9% 500 160 ml @ 20 mls/hr IV .Q24H [facility] Rx#:[id number] Oral 2160 120 Other: Voiding Method Bedside Commode Bedside Commode Bedside Commode # Voids 1 2 # Bowel Movements 3 1 - Exam No acute distress, oriented 3. HEENT examination is grossly unremarkable. Mucous membranes are moist. No oral lesions. Neck supple. Full range of motion. No adenopathy thyromegaly or neck vein distention. Cardiovascular examination reveals regular rhythm rate. S1-S2 normal. No S3 or S4. No discernible murmur noted. Lungs reveal clear breath sounds. Her sounds are equal bilaterally. No adventitious lung sounds including wheezes rhonchi or crackles. Abdomen soft bowel sounds are heard. No masses or tenderness. Extremities reveal that the right lower extremity is in a cast. The left lower extremity is normal. Again there was no evidence of any DVT in the right lower extremity.. Skin is without rash or lesion. Neurologic examination is brief but nonfocal. - Labs CBC & Chem 7: 03/21/17 07:11 03/21/17 07:11 Assessment and Plan Assessment: Assessment Bilateral pulmonary embolism, right greater than left Recent miscarriage Recent right ankle fracture, status post open reduction internal fixation Pleuritic chest pain, right sided Plan: Plan dated 03/22/2017 The patient could be transitioned to a factor X a inhibitor. I believe she was approved for one of them. She needs good pain control. On the pain medication so she can take deep breaths but not too much cause mental status changes. She she use incentive spirometer every hour. Additional recommendations and suggestions are forthcoming. Prognosis is generally good. No additional recommendations are made. Continue to follow closely. Plan dated 03/23/2017 The patient's doing better today. She was transitioned to a factor X a inhibitor. She did have one episode of coughing up blood. It was less than yesterday. She has significant pleuritic chest pain on the right side. Doppler of the lower extremities was negative although was difficult to evaluate given the cast. In addition, the echocardiogram did not show evidence of right heart strain or shifting of the septum. In addition, CTA was also negative for those features. The patient will continue be followed here. No additional recommendations are made. She does feel better. Time with Patient: Less than 30
[2017-03-23] MEDS: SODIUM CHLORIDE 0.9% 500 ML IV SCH (14:01)
[2017-03-24] MEDS: HYDROmorphone 2 MG/ML 1 ML SYRINGE IVP PRN ×3 (08:18→20:07)
[2017-03-24] MEDS: DOCUSATE 100 MG CAP PO SCH ×2 (08:20→20:07)
[2017-03-24] MEDS: APIXABAN 5 MG TAB PO SCH ×2 (08:20→20:07)
[2017-03-24] MEDS: POLYETHYLENE GLYCOL 3350 17 GM POWD.PACK PO SCH (08:21)
--- NOTE | 2017-03-24 15:05 | P.PN ---
Subjective Progress Note Date: 03/24/17 Principal diagnosis: Acute bilateral pulmonary embolisms, with right-sided involvement more than the left Cari is a 31-year-old white female patient, who presented to the emergency department on 03/20/2017 at 0912 in the morning per EMS, with complaints of acute onset right-sided chest pain that was exacerbated by deep inspiration sharp in nature and relieved by shallow breathing. She also felt very dyspneic. Patient states that on 03/12/2017 she fell on ice and broke her right ankle, and on 03/17/2017 she had it surgically repaired at [facility] in [place] and was discharged home on 03/18/2017. She states there was no anticoagulation prescribed, patient was sent home on stool softeners and pain medications. No aspirin. Also on 02/28/2017 patient had a miscarriage, she was 18 weeks along, she went for her regular checkup, but there was no heartbeat, patient was then induced. The baby was estimated to have at 15 weeks. Patient's vaginal bleeding had since significantly decreased, currently down to just slight spotting. She was supposed to have a follow-up appointment with her [employer] this week. Is not aware of any clotting disorders in her family , is a lifetime nonsmoker. Patient is also complaining of significant constipation, has not had a bowel movement since before surgery. CTA chest on showed bilateral pulmonary embolism right greater than the left with moderate involvement of the right and mild involvement on the left. Scattered areas of infiltrate right lower lobe with a left basilar atelectasis and small effusions. EKG showed sinus tachycardia with a rate of 109. Patient was started on IV heparin, Percocet, IV Dilaudid, MiraLAX, and Dulcolax suppository along with Colace, and admitted to medical surgical floor for further treatment. She is maintaining normal blood pressures, 109/71, she is on 2 L per nasal cannula with O2 sat at 99%. She is afebrile. Her respirations are shallow, there is significant right sided chest pain which is being medicated with IV Dilaudid. Progress note dated 03/22/2017 This is a 31-year-old female with recent miscarriage and subsequent fall and right ankle fractures then developed a pulmonary embolism involving the right lung greater than the left lung. The patient's headache echocardiogram which showed no evidence of right ventricular strain or shifting of the intraventricular septum. Likewise, there is no evidence of right heart failure or right ventricular strain pattern on CT angiogram. The patient is having some pleuritic chest pain to the right chest. Apparently as she has coughed up blood on 2 occasions. We went ended up turning the heparin down by half. In addition, the patient has a recent right by mild malleolar fracture with open reduction internal fixation and recent miscarriage at the 18th week of gestation. She is a lifetime nonsmoker and has opiate-induced constipation. Other than that though she is doing reasonably well. The Doppler of the right lower extremity was negative. Echocardiogram was negative. The patient could be started on oral anticoagulant. I do recommend one of the new factor X a inhibitors. This is a provoked pulmonary M was admission the patient should be treated for 3 months. Progress note dated 03/23/2017 31-year-old female with a recent miscarriage and subsequent fall and fracture of the right ankle. The patient needed repair of the right ankle fraction that was done. Subsequent to that she developed a pulmonary embolism involving primarily the right lower lobe but also in the left lung as well. The echocardiogram did not show any evidence of right heart strain or shifting of the intraventricular septum. In addition, there is no evidence of right heart strain or failure on the CT angiogram. The patient does have significant pleuritic chest pain. Particularly on the right side. It is worse with deep breathing coughing or sneezing. She was on IV heparin and recently has been switched to a factor X a inhibitor. She is doing better. She did cough up a couple bits of blood yesterday and had one episode today. Other than that though she seemed be doing reasonably well. She did have the open reduction internal fixation of the right malleolar fracture. Her miscarriage was in the 18th week of gestation. The Doppler of the right lower extremities was negative for DVT. Again the patient seemed be doing a bit better compared to yesterday. 03/24/2017 patient seen in follow-up on medical surgical floor. She is resting in bed, states her dyspnea is slightly improved, she is able to talk with significant respiratory difficulty. Remains on 2 L per nasal cannula with O2 sat at 98%. Afebrile, vital signs are stable. She was started on Eliquis, Premarin drip has been discontinued. She is receiving IV Dilaudid for the right -sided pleuritic chest pain. She is receiving stool softeners. Her right leg is in the half cast, toes on the right foot are warm, with immediate capillary refill. Lung sounds are clear diminished. Objective - Vital Signs Vital signs: Vital Signs Temp 98.8 F 03/24/17 07:00 Pulse 100 03/24/17 07:00 Resp 18 03/24/17 07:00 BP 91/63 03/24/17 07:00 Pulse Ox 98 03/24/17 07:00 Intake & Output 03/23/17 03/24/17 03/24/17 18:59 06:59 18:59 Intake Total 120 320 160 Balance 120 320 160 Weight 71.668 kg Intake: IV 160 Sodium Chloride 0.9% 500 160 ml @ 20 mls/hr IV .Q24H [facility] Rx#:[id number] Intake, IV Titration 120 80 Amount Sodium Chloride 0.9% 500 120 80 ml @ 20 mls/hr IV .Q24H [facility] Rx#:[id number] Oral 240 Other: Voiding Method Bedside Commode Bedside Commode # Voids 2 1 # Bowel Movements 1 1 - Exam No acute distress, oriented 3. HEENT examination is grossly unremarkable. Mucous membranes are moist. No oral lesions. Neck supple. Full range of motion. No adenopathy thyromegaly or neck vein distention. Cardiovascular examination reveals regular rhythm rate. S1-S2 normal. No S3 or S4. No discernible murmur noted. Lungs reveal clear breath sounds. Her sounds are equal bilaterally. No adventitious lung sounds including wheezes rhonchi or crackles. Abdomen soft bowel sounds are heard. No masses or tenderness. Extremities reveal that the right lower extremity is in a cast. The left lower extremity is normal. Again there was no evidence of any DVT in the right lower extremity.. Skin is without rash or lesion. Neurologic examination is brief but nonfocal. - Labs CBC & Chem 7: 03/21/17 07:11 03/21/17 07:11 Assessment and Plan Plan: Assessment: #1. Acute bilateral pulmonary embolisms, with right sided involvement more than the left. 2-D echo shows no sign of right ventricular strain, right ventricular systolic pressure is normal at less than 35 mmHg, no evidence of pulmonary hypertension, trace tricuspid regurgitation was noted. Patient was started on IV heparin #2. Acute dyspnea and sharp right-sided chest pain, secondary to the above #3. Right bimalleolar ankle fracture, status post ORIF, on 03/17/2017, patient was discharged home on 03/18/2017, with no anticoagulation. Surgery was done at [facility] in [place] #4. Recent miscarriage, at the 18th week of gestation, the baby was estimated to have at the 15th week of gestation. Patient underwent induction and delivery. Denies any other history of miscarriages. Has 2 other healthy, living children #5. Lifetime nonsmoker #6. Opiate-induced constipation Plan: Patient has been started on Eliquis, heparin has been discontinued. She remains hemodynamically stable, her dyspnea is slightly improved, continues with right-sided pleuritic chest pain. Continue pain control, encourage incentive spirometer. Increase activity as tolerated. Continue nebulized treatments. I performed a history & physical examination of the patient and discussed their management with my nurse practitioner, Gabriela Guevara. I reviewed the nurse practitioner's note and agree with the documented findings and plan of care. Lung sounds are positive for diminished air entry on the right, clear on the left .The findings and the impression was discussed with the patient. I attest to the documentation by the nurse practitioner. Time with Patient: Less than 30
[2017-03-24] MEDS: SODIUM CHLORIDE 0.9% 500 ML IV SCH (17:34)
--- NOTE | 2017-03-24 22:29 | P.PN ---
Subjective Progress Note Date: 03/22/17 Principal diagnosis: Bilateral pulmonary embolism Patient is a 31-year-old female with a known history of recent right lower activity bimalleolar fracture surgery on 03/17/2017 came to ER with complaints of right-sided chest pain. Patient woke up this morning and felt chest discomfort and pain along with deep breathing. No fever no chills. No cough or sputum production. Patient says that she fell on the ice on 12 of March and sustained bimalleolar fracture. Patient had surgery done on 17 of March at [facility] and was sent home with pain medications. Patient denied taking any aspirin or warfarin at home. Patient is currently staying with her parents house. Otherwise patient denied any nausea vomiting or abdominal pain. She denies any other complaints or symptoms. Patient denies any recent fever, chills, abdominal pain, nausea or vomiting, numbness or tingling, dysuria or hematuria, constipation or diarrhea, headaches or visual changes, or any other complaints. Denied any history of blood clots in the family. CT angiogram showed bilateral pulmonary embolism right greater than left with a moderate involvement in the right and mid involvement on the left. Scattered areas of infiltrate right lower lobe with the left basilar atelectasis and small effusions. 03/21/2017 Patient is still having chest pain with movement as well as with deep breathing. Continue to be on IV heparin. Bilateral lower admitted duplex is negative for any DVT. No fever no chills. No cough is from production. Pain is controlled with pain medications. Otherwise no nausea vomiting or abdominal pain. On 03/22/2017 Patient is still complaining of chest pain with deep breathing. Otherwise patient did have 2 episodes of hemoptysis. Currently denied any cough or sputum production. Heparin has been changed to oral anticoagulants. Patient is being continued on pain management for right leg pain. No fever no chills. No complaints of nausea vomiting or abdominal pain. All other review of systems negative except the above Current medications reviewed. Objective - Vital Signs Vital signs: Vital Signs Temp 99.4 F 03/22/17 15:21 Pulse 115 H 03/22/17 16:44 Resp 18 03/22/17 16:00 BP 105/58 03/22/17 15:21 Pulse Ox 97 03/22/17 16:41 Intake & Output 03/22/17 03/22/1718 06:59 18:59 06:59 Intake Total 425.685 9671.837 Balance 767.131 7277.837 Weight 71.668 kg Intake: Intake, IV Titration 215.905 270.837 Amount Heparin Sod,Pork in 0.45% 215.905 270.837 NaCl 25,000 unit In 0.45 % NaCl 1 500ml.bag @ 18 UNITS/KG/HR 25.8 mls/hr IV .[id number] [facility] Rx#: [id number] Oral 2160 Other: Voiding Method Bedside Commode Bedside Commode # Voids 1 1 - Exam Patient is lying in the bed comfortably, no acute distress, awake alert and oriented.. Patient seems to be drowsy HEENT: Normocephalic. Neck is supple. Pupils reactive. Nostrils clear. Oral cavity is moist. Ears reveal no drainage. Neck reveals no JVD, carotid bruits, or thyromegaly. CHEST EXAMINATION: Trachea is central. Symmetrical expansion. Lung kruse clear to auscultation and percussion. Shallow breathing CARDIAC: Normal S1, S2 with no gallops. No murmurs , tachycardic ABDOMEN: Soft. Bowel sounds normal. No organomegaly. No abdominal bruits. Extremities: reveal no edema. No clubbing or cyanosis. Right lower activity cast in place Neurologically awake, alert, oriented x3 with well-coordinated movements. No focal deficits noted Skin: No rash or skin lesions. Psychiatric: Cooperative. Nonsuicidal Musculoskeletal: No joint swelling or deformity. Normal range of motion. - Labs CBC & Chem 7: 03/21/17 07:11 03/21/17 07:11 Labs: Abnormal Lab Results - Last 24 Hours (Table) 03/22/17 Range/Units 07:13 APTT 45.7 H (22.0-30.0) sec Assessment and Plan Assessment: Provoked Acute bilateral pulmonary embolism. Right greater than left. Accidental Fall and Recent right lower activity bimalleolar fracture status post repair on 03/17/2017 Recent miscarriage about 10 days back. Constipation Plan: Patient was continued on heparin IV. Changed to eliquis 10 mg twice a day for 1 week followed by 5 mg twice a day. Continue with pain medications and bowel regimen. Will follow closely. Further recommendations based on clinical course.
--- NOTE | 2017-03-24 22:31 | P.PN ---
Subjective Progress Note Date: 03/23/17 Principal diagnosis: Bilateral pulmonary embolism Patient is a 31-year-old female with a known history of recent right lower activity bimalleolar fracture surgery on 03/17/2017 came to ER with complaints of right-sided chest pain. Patient woke up this morning and felt chest discomfort and pain along with deep breathing. No fever no chills. No cough or sputum production. Patient says that she fell on the ice on 12 of March and sustained bimalleolar fracture. Patient had surgery done on 17 of March at [facility] and was sent home with pain medications. Patient denied taking any aspirin or warfarin at home. Patient is currently staying with her parents house. Otherwise patient denied any nausea vomiting or abdominal pain. She denies any other complaints or symptoms. Patient denies any recent fever, chills, abdominal pain, nausea or vomiting, numbness or tingling, dysuria or hematuria, constipation or diarrhea, headaches or visual changes, or any other complaints. Denied any history of blood clots in the family. CT angiogram showed bilateral pulmonary embolism right greater than left with a moderate involvement in the right and mid involvement on the left. Scattered areas of infiltrate right lower lobe with the left basilar atelectasis and small effusions. 03/21/2017 Patient is still having chest pain with movement as well as with deep breathing. Continue to be on IV heparin. Bilateral lower admitted duplex is negative for any DVT. No fever no chills. No cough is from production. Pain is controlled with pain medications. Otherwise no nausea vomiting or abdominal pain. On 03/22/2017 Patient is still complaining of chest pain with deep breathing. Otherwise patient did have 2 episodes of hemoptysis. Currently denied any cough or sputum production. Heparin has been changed to oral anticoagulants. Patient is being continued on pain management for right leg pain. No fever no chills. No complaints of nausea vomiting or abdominal pain. On 03/23/2017 Chest pain is much improved now. 2-D echo showed no evidence of right heart strain. Chest pain is worse with deep breathing and sneezing. Improving clinically. Tolerating oral diet. Patient did have bowel movement and constipation has resolved. No other acute overnight issues. All other review of systems negative except the above Current medications reviewed. Objective - Vital Signs Vital signs: Vital Signs Temp 98.5 F 03/23/17 15:00 Pulse 108 H 03/23/17 16:00 Resp 18 03/23/17 16:00 BP 110/65 03/23/17 15:00 Pulse Ox 97 03/23/17 15:00 Intake & Output 03/23/17 03/23/17 03/24/17 06:59 18:59 06:59 Intake Total 280 120 320 Balance 280 120 320 Weight 71.668 kg 71.668 kg Intake: Intake, IV Titration 160 120 80 Amount Sodium Chloride 0.9% 500 160 120 80 ml @ 20 mls/hr IV .Q24H [facility] Rx#:[id number] Oral 120 240 Other: Voiding Method Bedside Commode Bedside Commode # Voids 2 2 1 # Bowel Movements 3 1 1 - Exam Patient is lying in the bed comfortably, no acute distress, awake alert and oriented.. Patient seems to be drowsy HEENT: Normocephalic. Neck is supple. Pupils reactive. Nostrils clear. Oral cavity is moist. Ears reveal no drainage. Neck reveals no JVD, carotid bruits, or thyromegaly. CHEST EXAMINATION: Trachea is central. Symmetrical expansion. Lung kruse clear to auscultation and percussion. Shallow breathing CARDIAC: Normal S1, S2 with no gallops. No murmurs , tachycardic ABDOMEN: Soft. Bowel sounds normal. No organomegaly. No abdominal bruits. Extremities: reveal no edema. No clubbing or cyanosis. Right lower activity cast in place Neurologically awake, alert, oriented x3 with well-coordinated movements. No focal deficits noted Skin: No rash or skin lesions. Psychiatric: Cooperative. Nonsuicidal Musculoskeletal: No joint swelling or deformity. Normal range of motion. - Labs CBC & Chem 7: 03/21/17 07:11 03/21/17 07:11 Assessment and Plan Assessment: Provoked Acute bilateral pulmonary embolism. Right greater than left. Accidental Fall and Recent right lower activity bimalleolar fracture status post repair on 03/17/2017 Recent miscarriage about 10 days back. Constipation. Resolved Plan: Patient was continued on heparin IV. Changed to eliquis 10 mg twice a day for 1 week followed by 5 mg twice a day. Continue with pain medications and bowel regimen. Will follow closely. Further recommendations based on clinical course.
--- NOTE | 2017-03-24 22:33 | P.PN ---
Subjective Progress Note Date: 03/24/17 Principal diagnosis: Bilateral pulmonary embolism Patient is a 31-year-old female with a known history of recent right lower activity bimalleolar fracture surgery on 03/17/2017 came to ER with complaints of right-sided chest pain. Patient woke up this morning and felt chest discomfort and pain along with deep breathing. No fever no chills. No cough or sputum production. Patient says that she fell on the ice on 12 of March and sustained bimalleolar fracture. Patient had surgery done on 17 of March at [facility] and was sent home with pain medications. Patient denied taking any aspirin or warfarin at home. Patient is currently staying with her parents house. Otherwise patient denied any nausea vomiting or abdominal pain. She denies any other complaints or symptoms. Patient denies any recent fever, chills, abdominal pain, nausea or vomiting, numbness or tingling, dysuria or hematuria, constipation or diarrhea, headaches or visual changes, or any other complaints. Denied any history of blood clots in the family. CT angiogram showed bilateral pulmonary embolism right greater than left with a moderate involvement in the right and mid involvement on the left. Scattered areas of infiltrate right lower lobe with the left basilar atelectasis and small effusions. 03/21/2017 Patient is still having chest pain with movement as well as with deep breathing. Continue to be on IV heparin. Bilateral lower admitted duplex is negative for any DVT. No fever no chills. No cough is from production. Pain is controlled with pain medications. Otherwise no nausea vomiting or abdominal pain. On 03/22/2017 Patient is still complaining of chest pain with deep breathing. Otherwise patient did have 2 episodes of hemoptysis. Currently denied any cough or sputum production. Heparin has been changed to oral anticoagulants. Patient is being continued on pain management for right leg pain. No fever no chills. No complaints of nausea vomiting or abdominal pain. On 03/23/2017 Chest pain is much improved now. 2-D echo showed no evidence of right heart strain. Chest pain is worse with deep breathing and sneezing. Improving clinically. Tolerating oral diet. Patient did have bowel movement and constipation has resolved. No other acute overnight issues. 03/24/2017 Chest pain is much improved now. Able to complicate without much shortness of breath. No complains of nausea vomiting or abdominal pain. Anticipate discharge in next 24-48 hours. All other review of systems negative except the above Current medications reviewed. Objective - Vital Signs Vital signs: Vital Signs Temp 99 F 03/24/17 21:44 Pulse 95 03/24/17 21:44 Resp 16 03/24/17 21:44 BP 108/68 03/24/17 21:44 Pulse Ox 96 03/24/17 21:44 Intake & Output 03/24/17 03/24/17 03/25/17 06:59 18:59 06:59 Intake Total 320 160 Balance 320 160 Intake: IV 160 Sodium Chloride 0.9% 500 160 ml @ 20 mls/hr IV .Q24H [facility] Rx#:[id number] Intake, IV Titration 80 Amount Sodium Chloride 0.9% 500 80 ml @ 20 mls/hr IV .Q24H [facility] Rx#:[id number] Oral 240 Other: Voiding Method Bedside Commode # Voids 1 # Bowel Movements 1 - Exam Patient is lying in the bed comfortably, no acute distress, awake alert and oriented.. Patient seems to be drowsy HEENT: Normocephalic. Neck is supple. Pupils reactive. Nostrils clear. Oral cavity is moist. Ears reveal no drainage. Neck reveals no JVD, carotid bruits, or thyromegaly. CHEST EXAMINATION: Trachea is central. Symmetrical expansion. Lung kruse clear to auscultation and percussion. Shallow breathing CARDIAC: Normal S1, S2 with no gallops. No murmurs , tachycardic ABDOMEN: Soft. Bowel sounds normal. No organomegaly. No abdominal bruits. Extremities: reveal no edema. No clubbing or cyanosis. Right lower activity cast in place Neurologically awake, alert, oriented x3 with well-coordinated movements. No focal deficits noted Skin: No rash or skin lesions. Psychiatric: Cooperative. Nonsuicidal Musculoskeletal: No joint swelling or deformity. Normal range of motion. - Labs CBC & Chem 7: 03/21/17 07:11 03/21/17 07:11 Assessment and Plan Assessment: Provoked Acute bilateral pulmonary embolism. Right greater than left. Dyspnea and sharp chest pain secondary to above. Improving now Accidental Fall and Recent right lower activity bimalleolar fracture status post repair on 03/17/2017 Recent miscarriage about 10 days back. Constipation. Resolved Plan: Patient was continued on heparin IV. Changed to eliquis 10 mg twice a day for 1 week followed by 5 mg twice a day. Continue with pain medications and bowel regimen. Will follow closely. Further recommendations based on clinical course.
[2017-03-25] MEDS: HYDROmorphone 2 MG/ML 1 ML SYRINGE IVP PRN ×2 (01:04→22:44)
[2017-03-25] MEDS: APIXABAN 5 MG TAB PO SCH ×2 (09:16→19:44)
[2017-03-25] MEDS: DOCUSATE 100 MG CAP PO SCH ×2 (09:16→19:42)
[2017-03-25] MEDS: POLYETHYLENE GLYCOL 3350 17 GM POWD.PACK PO SCH (09:16)
[2017-03-25] MEDS: oxyCODONE-APAP 5-325MG 1 EACH TAB PO PRN ×3 (09:18→19:42)
--- NOTE | 2017-03-25 13:12 | P.PN ---
Subjective Progress Note Date: 03/25/17 Principal diagnosis: Acute bilateral pulmonary embolisms, with right-sided involvement more than the left Cari is a 31-year-old white female patient, who presented to the emergency department on 03/20/2017 at 0912 in the morning per EMS, with complaints of acute onset right-sided chest pain that was exacerbated by deep inspiration sharp in nature and relieved by shallow breathing. She also felt very dyspneic. Patient states that on 03/12/2017 she fell on ice and broke her right ankle, and on 03/17/2017 she had it surgically repaired at [facility] in [place] and was discharged home on 03/18/2017. She states there was no anticoagulation prescribed, patient was sent home on stool softeners and pain medications. No aspirin. Also on 02/28/2017 patient had a miscarriage, she was 18 weeks along, she went for her regular checkup, but there was no heartbeat, patient was then induced. The baby was estimated to have at 15 weeks. Patient's vaginal bleeding had since significantly decreased, currently down to just slight spotting. She was supposed to have a follow-up appointment with her SECURITIES CONSULTANT this week. Is not aware of any clotting disorders in her family , is a lifetime nonsmoker. Patient is also complaining of significant constipation, has not had a bowel movement since before surgery. CTA chest on showed bilateral pulmonary embolism right greater than the left with moderate involvement of the right and mild involvement on the left. Scattered areas of infiltrate right lower lobe with a left basilar atelectasis and small effusions. EKG showed sinus tachycardia with a rate of 109. Patient was started on IV heparin, Percocet, IV Dilaudid, MiraLAX, and Dulcolax suppository along with Colace, and admitted to medical surgical floor for further treatment. She is maintaining normal blood pressures, 109/71, she is on 2 L per nasal cannula with O2 sat at 99%. She is afebrile. Her respirations are shallow, there is significant right sided chest pain which is being medicated with IV Dilaudid. Progress note dated 03/22/2017 This is a 31-year-old female with recent miscarriage and subsequent fall and right ankle fractures then developed a pulmonary embolism involving the right lung greater than the left lung. The patient's headache echocardiogram which showed no evidence of right ventricular strain or shifting of the intraventricular septum. Likewise, there is no evidence of right heart failure or right ventricular strain pattern on CT angiogram. The patient is having some pleuritic chest pain to the right chest. Apparently as she has coughed up blood on 2 occasions. We went ended up turning the heparin down by half. In addition, the patient has a recent right by mild malleolar fracture with open reduction internal fixation and recent miscarriage at the 18th week of gestation. She is a lifetime nonsmoker and has opiate-induced constipation. Other than that though she is doing reasonably well. The Doppler of the right lower extremity was negative. Echocardiogram was negative. The patient could be started on oral anticoagulant. I do recommend one of the new factor X a inhibitors. This is a provoked pulmonary M was admission the patient should be treated for 3 months. Progress note dated 03/23/2017 31-year-old female with a recent miscarriage and subsequent fall and fracture of the right ankle. The patient needed repair of the right ankle fraction that was done. Subsequent to that she developed a pulmonary embolism involving primarily the right lower lobe but also in the left lung as well. The echocardiogram did not show any evidence of right heart strain or shifting of the intraventricular septum. In addition, there is no evidence of right heart strain or failure on the CT angiogram. The patient does have significant pleuritic chest pain. Particularly on the right side. It is worse with deep breathing coughing or sneezing. She was on IV heparin and recently has been switched to a factor X a inhibitor. She is doing better. She did cough up a couple bits of blood yesterday and had one episode today. Other than that though she seemed be doing reasonably well. She did have the open reduction internal fixation of the right malleolar fracture. Her miscarriage was in the 18th week of gestation. The Doppler of the right lower extremities was negative for DVT. Again the patient seemed be doing a bit better compared to yesterday. 03/24/2017 patient seen in follow-up on medical surgical floor. She is resting in bed, states her dyspnea is slightly improved, she is able to talk with significant respiratory difficulty. Remains on 2 L per nasal cannula with O2 sat at 98%. Afebrile, vital signs are stable. She was started on Eliquis, Premarin drip has been discontinued. She is receiving IV Dilaudid for the right -sided pleuritic chest pain. She is receiving stool softeners. Her right leg is in the half cast, toes on the right foot are warm, with immediate capillary refill. Lung sounds are clear diminished. On 03/25/2017 patient seen again, reports improvement with her dyspnea, is able to speak in full sentences day. Right-sided pleuritic chest pain has also improved. Patient has been ambulating with physical therapist and a walker, tolerating it well. Lung sounds are clear, diminished at the bases. No rhonchi or wheezes noted. Denies on 2 L per nasal cannula with O2 sat at 96%. Afebrile, vital signs are stable. Continues on oral Eliquis. Heparin drip has been discontinued. Objective - Vital Signs Vital signs: Vital Signs Temp 98.1 F 03/25/17 07:00 Pulse 86 03/25/17 07:00 Resp 18 03/25/17 07:00 BP 103/68 03/25/17 07:00 Pulse Ox 96 03/25/17 07:00 Intake & Output 03/24/17 03/25/17 03/25/17 18:59 06:59 18:59 Intake Total 160 160 Balance 160 160 Weight 71.668 kg Intake: IV 160 Sodium Chloride 0.9% 500 160 ml @ 20 mls/hr IV .Q24H [facility] Rx#:[id number] Intake, IV Titration 160 Amount Sodium Chloride 0.9% 500 160 ml @ 20 mls/hr IV .Q24H [facility] Rx#:[id number] Other: Voiding Method Bedside Commode Bedside Commode # Voids 1 1 - Exam No acute distress, oriented 3. HEENT examination is grossly unremarkable. Mucous membranes are moist. No oral lesions. Neck supple. Full range of motion. No adenopathy thyromegaly or neck vein distention. Cardiovascular examination reveals regular rhythm rate. S1-S2 normal. No S3 or S4. No discernible murmur noted. Lungs reveal clear breath sounds. Her sounds are equal bilaterally. No adventitious lung sounds including wheezes rhonchi or crackles. Abdomen soft bowel sounds are heard. No masses or tenderness. Extremities reveal that the right lower extremity is in a cast. The left lower extremity is normal. Again there was no evidence of any DVT in the right lower extremity.. Skin is without rash or lesion. Neurologic examination is brief but nonfocal. - Labs CBC & Chem 7: 03/21/17 07:11 03/21/17 07:11 Assessment and Plan Plan: Assessment: #1. Acute bilateral pulmonary embolisms, with right sided involvement more than the left. 2-D echo shows no sign of right ventricular strain, right ventricular systolic pressure is normal at less than 35 mmHg, no evidence of pulmonary hypertension, trace tricuspid regurgitation was noted. Patient was started on IV heparin #2. Acute dyspnea and sharp right-sided chest pain, secondary to the above #3. Right bimalleolar ankle fracture, status post ORIF, on 03/17/2017, patient was discharged home on 03/18/2017, with no anticoagulation. Surgery was done at [facility] in [place] #4. Recent miscarriage, at the 18th week of gestation, the baby was estimated to have at the 15th week of gestation. Patient underwent induction and delivery. Denies any other history of miscarriages. Has 2 other healthy, living children #5. Lifetime nonsmoker #6. Opiate-induced constipation, improved Plan: Continue increasing activity, ambulation with physical therapy. Encourage incentive spirometry use, today she is able to achieve [id number] ML. Continue nebulized treatments, Eliquis. Did have one episode of coughing up a small blood clot, single episode. Heparin drip has been discontinued. Continue to monitor for increased hemoptysis I performed a history & physical examination of the patient and discussed their management with my nurse practitioner, Gabriela Guevara. I reviewed the nurse practitioner's note and agree with the documented findings and plan of care. Lung sounds are positive for diminished .The findings and the impression was discussed with the patient. I attest to the documentation by the nurse practitioner. Time with Patient: Less than 30
[2017-03-25] MEDS: SODIUM CHLORIDE 0.9% 500 ML IV SCH (13:18)
[2017-03-25 19:12] LABS: Anion Gap 8 mmol/L; Blood Urea Nitrogen 14 mg/dL (7-17); Calcium 9.4 mg/dL (8.4-10.2); Carbon Dioxide 30 mmol/L (22-30); Chloride 102 mmol/L (98-107); Glucose 110 mg/dL (74-99); Potassium 4.7 mmol/L (3.5-5.1); Sodium 140 mmol/L (137-145)
--- NOTE | 2017-03-25 21:01 | PN ---
PROGRESS NOTE DATE OF SERVICE: 03/25/2017 BRIEF HISTORY: This patient is a 31-year-old female patient who presented to ED with the complaint of acute right-sided chest pain. The patient was diagnosed with bilateral PE and was admitted on anticoagulation therapy. The patient is currently on 2 L of oxygen and has been started on Eliquis. Heparin drip has been discontinued. PHYSICAL EXAMINATION: Patient is seen in her room. Claims her dyspnea is better. Chest pain is also improved. She has been ambulating with Physical Therapy with a walker. VITAL SIGNS: Temperature 98.1, pulse 86, respiration 18, blood pressure 103/68, oxygen saturation 96%. GENERAL PHYSICAL EXAMINATION: She is awake, alert, oriented x3. She is in no acute distress. HEENT: Atraumatic, normocephalic. Pupils equal and reactive to light. Extraocular movements are intact. Buccal mucosa is fair. NECK: Supple. No goiter or lymphadenopathy. JVD is negative. No carotid bruit heard. RESPIRATORY SYSTEM: Lungs are clear to auscultate. No rales, rhonchi or wheezes. CARDIOVASCULAR SYSTEM: Heart is regular rate and rhythm without any murmurs or gallop rhythm. ABDOMEN: Soft, nontender, nondistended. Bowel sounds positive. EXTREMITIES: Patient's right lower extremity is in the cast. Left lower extremity: There is no edema, clubbing or cyanosis. SKIN; is intact without any rashes or pigmentation. NEUROLOGICAL EXAMINATION: Patient is awake, alert, oriented x3. There is no gross focal or sensory deficit. LYMPHATICS; no cervical or axillary LAP LABS AND X-RAY DATA: CBC, white blood count of 9.5, hemoglobin 11.8, hematocrit 36.6 and platelet count of 210. Chemical profile sodium 136, potassium 4.6, chloride 100, bicarb 29, BUN 7 , creatinine 0.5, glucose 102. ASSESSMENT: 1. Provoked acute bilateral pulmonary embolism, right-sided involvement greater than the left. The patient did have an echocardiogram without any signs of right heart strain or pulmonary hypertension. The patient has been treated with IV heparin drip, which was discontinued. The patient is started on Eliquis. 2. Acute onset dyspnea with sharp right-sided chest pain, clinically possibly secondary to pulmonary embolism, which is clinically improving. 3. Accidental fall with right lower extremity bimalleolar fracture, status post repair on 03/17/2017. 4. Recent miscarriage about 2 weeks ago. 5. Tobacco abuse. 6. Opioid-induced constipation, clinically improved. 7. Mild hemoptysis. The patient is to continue with Eliquis. Activities increased. Patient is ambulating with Physical Therapy. The patient is encouraged to use incentive spirometry. Patient did have an episode of coughing up small blood clot. No recurrent episode. Heparin drip has been continued. Plan is to monitor closely for any further hemoptysis. The patient is resumed on pain medications and bowel regimen. Continue current plan of care. Discharge when cleared by Pulmonary. MMODL / IJN: [id number] / HELGA
[2017-03-26 08:58] LABS: Basophils % (A) 1 %; Eosinophils # (A) 0.2 k/uL (0-0.7); Eosinophils % (A) 3 %; HCT 34.6 % (34.0-46.0); Lymphocytes # (A) 1.2 k/uL (1.0-4.8); Lymphocytes % (A) 19 %; MCH 28.1 pg (25.0-35.0); MCHC 31.6 g/dL (31.0-37.0); MCV 88.9 fL (80.0-100.0); Mean Platelet Volume 7.8; Monocytes # (A) 0.4 k/uL (0-1.0); Monocytes % (A) 6 %; Neutrophils # (A) 4.4 k/uL (1.3-7.7); Neutrophils % (A) 71 %; Platelet Count 342 k/uL (150-450); WBC 6.2 k/uL (3.8-10.6)
[2017-03-26] MEDS: POLYETHYLENE GLYCOL 3350 17 GM POWD.PACK PO SCH (09:09)
[2017-03-26] MEDS: APIXABAN 5 MG TAB PO SCH ×3 (09:10→20:00)
[2017-03-26] MEDS: DOCUSATE 100 MG CAP PO SCH ×2 (09:11→20:00)
[2017-03-26] MEDS: oxyCODONE-APAP 5-325MG 1 EACH TAB PO PRN ×3 (09:11→22:01)
[2017-03-26] MEDS: SODIUM CHLORIDE 0.9% 500 ML IV SCH ×2 (13:29→13:43)
--- NOTE | 2017-03-26 16:22 | P.PN ---
<Gabriela Guevara M - Last Filed: 03/26/17 16:14> Subjective Progress Note Date: 03/26/17 Principal diagnosis: Acute bilateral pulmonary embolisms, with right-sided involvement more than the left Cari is a 31-year-old white female patient, who presented to the emergency department on 03/20/2017 at 0912 in the morning per EMS, with complaints of acute onset right-sided chest pain that was exacerbated by deep inspiration sharp in nature and relieved by shallow breathing. She also felt very dyspneic. Patient states that on 03/12/2017 she fell on ice and broke her right ankle, and on 03/17/2017 she had it surgically repaired at [facility] in [place] and was discharged home on 03/18/2017. She states there was no anticoagulation prescribed, patient was sent home on stool softeners and pain medications. No aspirin. Also on 02/28/2017 patient had a miscarriage, she was 18 weeks along, she went for her regular checkup, but there was no heartbeat, patient was then induced. The baby was estimated to have at 15 weeks. Patient's vaginal bleeding had since significantly decreased, currently down to just slight spotting. She was supposed to have a follow-up appointment with her BURGLARY INVESTIGATOR this week. Is not aware of any clotting disorders in her family , is a lifetime nonsmoker. Patient is also complaining of significant constipation, has not had a bowel movement since before surgery. CTA chest on showed bilateral pulmonary embolism right greater than the left with moderate involvement of the right and mild involvement on the left. Scattered areas of infiltrate right lower lobe with a left basilar atelectasis and small effusions. EKG showed sinus tachycardia with a rate of 109. Patient was started on IV heparin, Percocet, IV Dilaudid, MiraLAX, and Dulcolax suppository along with Colace, and admitted to medical surgical floor for further treatment. She is maintaining normal blood pressures, 109/71, she is on 2 L per nasal cannula with O2 sat at 99%. She is afebrile. Her respirations are shallow, there is significant right sided chest pain which is being medicated with IV Dilaudid. Progress note dated 03/22/2017 This is a 31-year-old female with recent miscarriage and subsequent fall and right ankle fractures then developed a pulmonary embolism involving the right lung greater than the left lung. The patient's headache echocardiogram which showed no evidence of right ventricular strain or shifting of the intraventricular septum. Likewise, there is no evidence of right heart failure or right ventricular strain pattern on CT angiogram. The patient is having some pleuritic chest pain to the right chest. Apparently as she has coughed up blood on 2 occasions. We went ended up turning the heparin down by half. In addition, the patient has a recent right by mild malleolar fracture with open reduction internal fixation and recent miscarriage at the 18th week of gestation. She is a lifetime nonsmoker and has opiate-induced constipation. Other than that though she is doing reasonably well. The Doppler of the right lower extremity was negative. Echocardiogram was negative. The patient could be started on oral anticoagulant. I do recommend one of the new factor X a inhibitors. This is a provoked pulmonary M was admission the patient should be treated for 3 months. Progress note dated 03/23/2017 31-year-old female with a recent miscarriage and subsequent fall and fracture of the right ankle. The patient needed repair of the right ankle fraction that was done. Subsequent to that she developed a pulmonary embolism involving primarily the right lower lobe but also in the left lung as well. The echocardiogram did not show any evidence of right heart strain or shifting of the intraventricular septum. In addition, there is no evidence of right heart strain or failure on the CT angiogram. The patient does have significant pleuritic chest pain. Particularly on the right side. It is worse with deep breathing coughing or sneezing. She was on IV heparin and recently has been switched to a factor X a inhibitor. She is doing better. She did cough up a couple bits of blood yesterday and had one episode today. Other than that though she seemed be doing reasonably well. She did have the open reduction internal fixation of the right malleolar fracture. Her miscarriage was in the 18th week of gestation. The Doppler of the right lower extremities was negative for DVT. Again the patient seemed be doing a bit better compared to yesterday. 03/24/2017 patient seen in follow-up on medical surgical floor. She is resting in bed, states her dyspnea is slightly improved, she is able to talk with significant respiratory difficulty. Remains on 2 L per nasal cannula with O2 sat at 98%. Afebrile, vital signs are stable. She was started on Eliquis, Premarin drip has been discontinued. She is receiving IV Dilaudid for the right -sided pleuritic chest pain. She is receiving stool softeners. Her right leg is in the half cast, toes on the right foot are warm, with immediate capillary refill. Lung sounds are clear diminished. On 03/25/2017 patient seen again, reports improvement with her dyspnea, is able to speak in full sentences day. Right-sided pleuritic chest pain has also improved. Patient has been ambulating with physical therapist and a walker, tolerating it well. Lung sounds are clear, diminished at the bases. No rhonchi or wheezes noted. Denies on 2 L per nasal cannula with O2 sat at 96%. Afebrile, vital signs are stable. Continues on oral Eliquis. Heparin drip has been discontinued. On 03/26/2017 patient seen in follow-up on medical surgical floor. She did have 2 more episodes of coughing up blood clots, but overall her condition continues to improve, she is able to speak in full sentences without significant shortness of breath. She has been ambulating in the room and in the hallway, tolerating it well. Less pleuritic chest pain. She reports some vaginal bleeding, she noticed that on the toilet paper, after going to the bathroom. But the bleeding is not significant, the patient is not wearing a pad. Continue incentive spirometry use, continue Eliquis. Obtain BURGLARY INVESTIGATOR consultation in regards to small amount of vaginal bleeding, patient is status miscarriage at the 18th week of gestation on 02/28/2017. Objective - Vital Signs Vital signs: Vital Signs Temp 98.4 F 03/26/17 07:00 Pulse 85 03/25/17 19:45 Resp 16 03/26/17 07:00 BP 99/62 03/26/17 07:00 Pulse Ox 97 03/26/17 07:00 Intake & Output 03/25/17 03/26/17 03/26/17 18:59 06:59 18:59 Intake Total 160 140 160 Balance 160 140 160 Weight 71.668 kg Intake: IV 160 160 Sodium Chloride 0.9% 500 160 160 ml @ 20 mls/hr IV .Q24H [facility] Rx#:[id number] Intake, IV Titration 140 Amount Sodium Chloride 0.9% 500 140 ml @ 20 mls/hr IV .Q24H [facility] Rx#:[id number] Other: Voiding Method Bedside Commode Bedside Commode Bedside Commode # Voids 3 1 - Exam No acute distress, oriented 3. HEENT examination is grossly unremarkable. Mucous membranes are moist. No oral lesions. Neck supple. Full range of motion. No adenopathy thyromegaly or neck vein distention. Cardiovascular examination reveals regular rhythm rate. S1-S2 normal. No S3 or S4. No discernible murmur noted. Lungs reveal clear breath sounds. Her sounds are equal bilaterally. No adventitious lung sounds including wheezes rhonchi or crackles. Abdomen soft bowel sounds are heard. No masses or tenderness. Extremities reveal that the right lower extremity is in a cast. The left lower extremity is normal. Again there was no evidence of any DVT in the right lower extremity.. Skin is without rash or lesion. Neurologic examination is brief but nonfocal. - Labs CBC & Chem 7: 03/26/17 08:14 03/25/17 18:22 Labs: Abnormal Lab Results - Last 24 Hours (Table) 03/25/17 03/26/17 Range/Units 18:22 08:14 Hgb 11.0 L (11.4-16.0) gm/dL Glucose 110 H (74-99) mg/dL Assessment and Plan Plan: Assessment: #1. Acute bilateral pulmonary embolisms, with right sided involvement more than the left. 2-D echo shows no sign of right ventricular strain, right ventricular systolic pressure is normal at less than 35 mmHg, no evidence of pulmonary hypertension, trace tricuspid regurgitation was noted. Patient was initially started on heparin drip, she was then switched over to Eliquis #2. Acute dyspnea and sharp right-sided chest pain, secondary to the above, improving #3. Right bimalleolar ankle fracture, status post ORIF, on 03/17/2017, patient was discharged home on 03/18/2017, with no anticoagulation. Surgery was done at [facility] in [place] #4. Recent miscarriage, at the 18th week of gestation, the baby was estimated to have at the 15th week of gestation. Patient underwent induction and delivery. Denies any other history of miscarriages. Has 2 other healthy, living children, just 2-1/2 and 5 years old. Patient is now reporting some small amount of vaginal bleeding #5. Lifetime nonsmoker #6. Opiate-induced constipation, improved Plan: Patient did have a couple episodes of coughing up small blood clots, pleuritic chest pain and dyspnea continued to improve. Patient is able to tolerate increased activity, ambulation in the hallway. Oxygenation is stable, wearing O2 at 2 L intermittently, but on room air she is 97%. Vital signs are stable, patient is afebrile. Lung sounds are clear. Continue Eliquis. Obtain BURGLARY INVESTIGATOR consultation in regards to small amount of vaginal bleeding. Continue increasing activity, continue encouraging IS use I performed a history & physical examination of the patient and discussed their management with my nurse practitioner, Gabriela Guevara. I reviewed the nurse practitioner's note and agree with the documented findings and plan of care. Lung sounds are positive for diminished breath sounds.The findings and the impression was discussed with the patient. I attest to the documentation by the nurse practitioner. Time with Patient: Less than 30 <Atnonio Chu - Last Filed: 03/26/17 18:17> Objective - Vital Signs Vital signs: Vital Signs Temp 98.1 F 03/26/17 15:00 Pulse 88 03/26/17 15:00 Resp 16 03/26/17 15:00 BP 114/80 03/26/17 15:00 Pulse Ox 97 03/26/17 15:00 Intake & Output 03/25/17 03/26/17 03/26/17 18:59 06:59 18:59 Intake Total 160 140 160 Balance 160 140 160 Weight 71.668 kg Intake: IV 160 160 Sodium Chloride 0.9% 500 160 160 ml @ 20 mls/hr IV .Q24H [facility] Rx#:[id number] Intake, IV Titration 140 Amount Sodium Chloride 0.9% 500 140 ml @ 20 mls/hr IV .Q24H [facility] Rx#:[id number] Other: Voiding Method Bedside Commode Bedside Commode Bedside Commode # Voids 3 1 - Labs CBC & Chem 7: 03/26/17 08:14 03/25/17 18:22 Labs: Abnormal Lab Results - Last 24 Hours (Table) 03/25/17 03/26/17 Range/Units 18:22 08:14 Hgb 11.0 L (11.4-16.0) gm/dL Glucose 110 H (74-99) mg/dL Assessment and Plan Plan: A joint evaluation that was done along with a nurse practitioner. The patient was taken off oxygen and she is currently on room air. She has had some minor hemoptysis probably related to her pulmonary embolism and will continue the anticoagulation. I will also ask BURGLARY INVESTIGATOR to evaluate this patient regarding her vaginal bleed/spotting post miscarriage. For the most part she is doing well. She will need to sit up on a chair.
--- NOTE | 2017-03-26 22:23 | PN ---
PROGRESS NOTE DATE OF SERVICE: 03/26/2017 Patient is seen in the room, resting comfortably in the bedside chair. Family is at the bedside. Claims she still had an episode of a small amount of hemoptysis. Also complains of some vaginal bleeding. VITAL SIGNS: Temperature of 98.1, pulse 88, respiration 16, blood pressure 114/80, oxygen saturation 97%. HEENT: Atraumatic, normocephalic. Pupils equal and reactive to light. Extraocular movements intact. Buccal mucosa is fair. Neck is supple. No goiter or lymphadenopathy. JVD is negative. No carotid bruit heard. Lungs are clear to auscultate. No rales, rhonchi or wheezes. Heart is regular rate and rhythm without murmurs or gallop rhythm. Abdomen is soft, nontender, nondistended. Bowel sounds positive. EXTREMITIES: No edema, clubbing, cyanosis. NEUROLOGICAL EXAMINATION: Cranial nerve 2-12 are grossly intact. No gross motor or sensory deficit. MUSCULOSKELETAL: Patient moves all 4 extremities. No gross joint or muscle deformity. LYMPHATICS: No enlarged palpable lymph nodes. LABS: CBC white blood count of 6.2, hemoglobin 11, hematocrit 34.6, and platelet count of 342. Chemical profile sodium 140, potassium 4.7, chloride 102, bicarb 30, BUN of 14, creatinine 0.65. ASSESSMENT: 1. Vaginal bleeding. Patient's IV heparin drip has been discontinued, but she remains on Eliquis. [employer] consultation is done for further recommendations. 2. Hemoptysis. Patient's hemoglobin is stable. She is being followed by Pulmonary. Pulmonary is recommending to continue anticoagulation. 3. Provoked acute bilateral pulmonary embolism, right greater than left. As described, patient's IV heparin is discontinued, but she remains on Eliquis. 4. Acute onset dyspnea with right-sided chest pain, possibly pleuritic. 5. Accidental fall with right lower extremity bimalleolar fracture, status post repair on 03/17/2017. 6. Recent miscarriage. 7. Tobacco abuse. 8. Opioid-induced constipation. PLAN: Monitor patient's CBC as recommended by Pulmonary. Possible discharge once cleared by Pulmonary Service. MMODL / IJN: [id number] /
[2017-03-27] MEDS: oxyCODONE-APAP 5-325MG 1 EACH TAB PO PRN ×2 (05:37→12:35)
[2017-03-27] MEDS: DOCUSATE 100 MG CAP PO SCH (07:36)
[2017-03-27] MEDS: APIXABAN 5 MG TAB PO SCH (07:36)
[2017-03-27] MEDS: POLYETHYLENE GLYCOL 3350 17 GM POWD.PACK PO SCH (07:40)
[2017-03-27] MEDS ORDERED: HYDROmorphone 4 MG/ML 1 ML SYRINGE IVP PRN (08:07)
--- NOTE | 2017-03-27 08:29 | XR ---
EXAMINATION TYPE: XR chest 2V DATE OF EXAM: 03/27/2017 COMPARISON: NONE HISTORY: Chest pain TECHNIQUE: Frontal and lateral views of the chest are obtained. FINDINGS: Increased density right lower lobe may reflect developing infiltrate. Correlate clinically and progre ss studies are recommended. No evidence for pneumothorax. No pleural effusion. The cardiac silhouette size is within normal limits. The osseous structures are grossly intact. IMPRESSION: 1. Increased density right lower lobe may reflect developing infiltrate. Correlate clinically and pr ogress studies are recommended.
[2017-03-27 08:31] VITALS: BP 100/56; TEMP 97.8
--- NOTE | 2017-03-27 08:31 | P.OBCN ---
History of Present Illness Consult date: 03/27/17 Reason for consult: other (Vaginal bleeding status post 18 week IUFD in January.) Chief complaint: Scant vaginal bleeding History of present illness: This is a 31-year-old 3 para 2011 that presented to the hospital with shortness of breath and was diagnosed subsequently with bilateral pulmonary Helen. Patient is currently on blood thinners and is being managed by medicine. I was consulted regarding scant vaginal bleeding she's been having since her 18 week intrauterine demise in January. Patient states that on 1226 she went to the doctor's office no heart tones were noted she subsequently was induced and had a spontaneous vaginal delivery of a 15 week fetus and on 1228. She states the delivery went well there was no complications and the placenta was delivered without difficulty. She delivered at [facility]. She states in early March she fell and broke her leg had surgery on March 17 is currently woke up on March 21 with shortness of breath and has been being treated for pulmonary embolism. In regards to the bleeding she states it is scant in nature, it is only with wiping. And she did stop prior to starting the heparin. She denies pain or cramping with the bleeding, no fevers or chills or reported to me this morning Review of Systems Constitutional: Denies chills, Denies fever Cardiovascular: Denies chest pain Respiratory: Denies dyspnea Menstruation: Reports as per HPI Past Medical History Past Medical History: No Reported History Additional Past Medical History / Comment(s): 02/28/17 Pt gave and baby was a stillborn, 03/12/17 R ankle fracture with surgical repair on 03/17/17, recent constipation-pt states no BM since 03/12/17. History of Any Multi-Drug Resistant Organisms: None Reported Past Surgical History: Orthopedic Surgery Additional Past Surgical History / Comment(s): 03/17/17 ORIF R ankle at [facility] in [place], R knee arthroscopy, wisdom teeth extractions, sinus surgery. Past Anesthesia/Blood Transfusion Reactions: No Reported Reaction Past Psychological History: No Psychological Hx Reported Additional Psychological History / Comment(s): Pt resides with her spouse and 2 children. Her spouse is in [place] (he is a etcher machine). She is currently staying with her parents here in [place] due to recently delivering a stillborn baby and fracturing her ankle then had surgery. Smoking Status: Never smoker Past Alcohol Use History: None Reported Past Drug Use History: None Reported - Past Family History Father Family Medical History: No Reported History Additional Family Medical History / Comment(s): Father is healthy Mother Family Medical History: No Reported History Additional Family Medical History / Comment(s): Mother is healthy. Medications and Allergies Home Medications Medication Instructions Recorded Confirmed Type Docusate [Colace] 100 mg PO DAILY PRN 03/20/17 03/20/17 History Polyethylene Glycol 3350 [Miralax] 17 gm PO DAILY PRN 03/20/17 03/20/17 History oxyCODONE-APAP 5-325MG [Percocet 1 - 2 tab PO Q4-6H PRN 03/20/17 03/20/17 History 5-325 mg] Allergies Allergy/AdvReac Type Severity Reaction Status Date / Time No Known Allergies Allergy Verified 03/20/17 09:54 Exam Osteopathic Statement: *. No significant issues noted on an osteopathic structural exam other than those noted in the History and Physical/Consult. - Vital Signs Vital signs: Vital Signs Temp Pulse Resp BP Pulse Ox 03/26/17 21:54 99.2 F 92 16 110/73 97 03/26/17 15:00 98.1 F 88 16 114/80 97 Intake and Output 03/26/17 03/27/17 03/27/17 22:59 06:59 14:59 Intake Total 160 160 Balance 160 160 Intake: IV 160 160 Sodium Chloride 0.9% 500 160 160 ml @ 20 mls/hr IV .Q24H [facility] Rx#:[id number] Other: Voiding Method Bedside Commode Bedside Commode # Voids 1 Results Result Diagrams: 03/26/17 08:14 03/25/17 18:22 Abnormal Lab Results - Last 24 Hours (Table) 03/26/17 Range/Units 08:14 Hgb 11.0 L (11.4-16.0) gm/dL Assessment and Plan (1) Vaginal bleeding Current Visit: Yes Status: Acute Code(s): N93.9 - ABNORMAL UTERINE AND VAGINAL BLEEDING, UNSPECIFIED SNOMED Code(s): 471871016 (2) H/O demise, not currently Narrative/Plan: I did discuss with the patient this morning that it is not uncommon for her to have some spotting after a spontaneous vaginal delivery. She in addition has been on heparin/blood thinners which is most likely causing her to have a little bit of increase in her vaginal spotting. I ordered a quantitative beta hCG which was not back at this morning, and pelvic ultrasound in addition. I do believe this is something that she can follow up outpatient with her primary HISTOLOGIST, once she is d/c home. I would be happy to see her in addition if she would like as well. Thank you for the consult on this goran pt. Current Visit: Yes Status: Acute Code(s): Z87.59 - PERSONAL HISTORY OF COMP OF PREG, CHLDBRTH AND THE PUERP SNOMED Code(s): 305837747
[2017-03-27 09:05] LABS: Basophils % (A) 0 %; Eosinophils # (A) 0.2 k/uL (0-0.7); Eosinophils % (A) 2 %; HCT 33.2 % (34.0-46.0); Lymphocytes # (A) 1.8 k/uL (1.0-4.8); Lymphocytes % (A) 27 %; MCH 28.6 pg (25.0-35.0); MCHC 33.1 g/dL (31.0-37.0); MCV 86.4 fL (80.0-100.0); Mean Platelet Volume 7.9; Monocytes # (A) 0.3 k/uL (0-1.0); Monocytes % (A) 4 %; Neutrophils # (A) 4.1 k/uL (1.3-7.7); Neutrophils % (A) 64 %; Platelet Count 318 k/uL (150-450); RBC 3.84 m/uL (3.80-5.40); RDW 12.7 % (11.5-15.5); WBC 6.4 k/uL (3.8-10.6)
[2017-03-27] MEDS ORDERED: HYDROmorphone 2 MG/ML 1 ML SYRINGE IVP PRN (09:52)
--- NOTE | 2017-03-27 10:36 | US ---
EXAMINATION TYPE: US transvaginal DATE OF EXAM: 03/26/2017 COMPARISON: NONE CLINICAL HISTORY: vaginal bleeding-status post miscarriage. TECHNIQUE: Transvaginal (TV) Date of LMP: EXAM MEASUREMENTS: Uterus: 7.3 x 4.9 x 5.4 cm Endometrial Stripe: 0.54 cm Left Ovary: 2.4 x 1.1 x 1.0 cm 1. Uterus: Antiflexed wnl 2. Endometrium: wnl 3. Right Ovary: Obscured by overlying bowel gas 4. Left Ovary: Tiny ovarian follicles seen. 5. Bilateral Adnexa: wnl 6. Posterior cul-de-sac: wnl IMPRESSION: No significant abnormality appreciated. No evidence for retained products at this time.
--- NOTE | 2017-03-27 16:32 | P.PN ---
Subjective Progress Note Date: 03/27/17 Principal diagnosis: Acute bilateral pulmonary embolisms, with right-sided involvement more than the left Cari is a 31-year-old white female patient, who presented to the emergency department on 03/20/2017 at 0912 in the morning per EMS, with complaints of acute onset right-sided chest pain that was exacerbated by deep inspiration sharp in nature and relieved by shallow breathing. She also felt very dyspneic. Patient states that on 03/12/2017 she fell on ice and broke her right ankle, and on 03/17/2017 she had it surgically repaired at [facility] in [place] and was discharged home on 03/18/2017. She states there was no anticoagulation prescribed, patient was sent home on stool softeners and pain medications. No aspirin. Also on 02/28/2017 patient had a miscarriage, she was 18 weeks along, she went for her regular checkup, but there was no heartbeat, patient was then induced. The baby was estimated to have at 15 weeks. Patient's vaginal bleeding had since significantly decreased, currently down to just slight spotting. She was supposed to have a follow-up appointment with her SURGICAL SCRUB TECH this week. Is not aware of any clotting disorders in her family , is a lifetime nonsmoker. Patient is also complaining of significant constipation, has not had a bowel movement since before surgery. CTA chest on showed bilateral pulmonary embolism right greater than the left with moderate involvement of the right and mild involvement on the left. Scattered areas of infiltrate right lower lobe with a left basilar atelectasis and small effusions. EKG showed sinus tachycardia with a rate of 109. Patient was started on IV heparin, Percocet, IV Dilaudid, MiraLAX, and Dulcolax suppository along with Colace, and admitted to medical surgical floor for further treatment. She is maintaining normal blood pressures, 109/71, she is on 2 L per nasal cannula with O2 sat at 99%. She is afebrile. Her respirations are shallow, there is significant right sided chest pain which is being medicated with IV Dilaudid. Progress note dated 03/22/2017 This is a 31-year-old female with recent miscarriage and subsequent fall and right ankle fractures then developed a pulmonary embolism involving the right lung greater than the left lung. The patient's headache echocardiogram which showed no evidence of right ventricular strain or shifting of the intraventricular septum. Likewise, there is no evidence of right heart failure or right ventricular strain pattern on CT angiogram. The patient is having some pleuritic chest pain to the right chest. Apparently as she has coughed up blood on 2 occasions. We went ended up turning the heparin down by half. In addition, the patient has a recent right by mild malleolar fracture with open reduction internal fixation and recent miscarriage at the 18th week of gestation. She is a lifetime nonsmoker and has opiate-induced constipation. Other than that though she is doing reasonably well. The Doppler of the right lower extremity was negative. Echocardiogram was negative. The patient could be started on oral anticoagulant. I do recommend one of the new factor X a inhibitors. This is a provoked pulmonary M was admission the patient should be treated for 3 months. Progress note dated 03/23/2017 31-year-old female with a recent miscarriage and subsequent fall and fracture of the right ankle. The patient needed repair of the right ankle fraction that was done. Subsequent to that she developed a pulmonary embolism involving primarily the right lower lobe but also in the left lung as well. The echocardiogram did not show any evidence of right heart strain or shifting of the intraventricular septum. In addition, there is no evidence of right heart strain or failure on the CT angiogram. The patient does have significant pleuritic chest pain. Particularly on the right side. It is worse with deep breathing coughing or sneezing. She was on IV heparin and recently has been switched to a factor X a inhibitor. She is doing better. She did cough up a couple bits of blood yesterday and had one episode today. Other than that though she seemed be doing reasonably well. She did have the open reduction internal fixation of the right malleolar fracture. Her miscarriage was in the 18th week of gestation. The Doppler of the right lower extremities was negative for DVT. Again the patient seemed be doing a bit better compared to yesterday. 03/24/2017 patient seen in follow-up on medical surgical floor. She is resting in bed, states her dyspnea is slightly improved, she is able to talk with significant respiratory difficulty. Remains on 2 L per nasal cannula with O2 sat at 98%. Afebrile, vital signs are stable. She was started on Eliquis, Premarin drip has been discontinued. She is receiving IV Dilaudid for the right -sided pleuritic chest pain. She is receiving stool softeners. Her right leg is in the half cast, toes on the right foot are warm, with immediate capillary refill. Lung sounds are clear diminished. On 03/25/2017 patient seen again, reports improvement with her dyspnea, is able to speak in full sentences day. Right-sided pleuritic chest pain has also improved. Patient has been ambulating with physical therapist and a walker, tolerating it well. Lung sounds are clear, diminished at the bases. No rhonchi or wheezes noted. Denies on 2 L per nasal cannula with O2 sat at 96%. Afebrile, vital signs are stable. Continues on oral Eliquis. Heparin drip has been discontinued. On 03/26/2017 patient seen in follow-up on medical surgical floor. She did have 2 more episodes of coughing up blood clots, but overall her condition continues to improve, she is able to speak in full sentences without significant shortness of breath. She has been ambulating in the room and in the hallway, tolerating it well. Less pleuritic chest pain. She reports some vaginal bleeding, she noticed that on the toilet paper, after going to the bathroom. But the bleeding is not significant, the patient is not wearing a pad. Continue incentive spirometry use, continue Eliquis. Obtain SURGICAL SCRUB TECH consultation in regards to small amount of vaginal bleeding, patient is status miscarriage at the 18th week of gestation on 02/28/2017. On 03/27/2017 patient seen in follow-up. Denies worsening dyspnea, minimal residual pleuritic chest pain, she stable tolerate ambulation. She has not had any more hemoptysis. She is continuously improving. Centimeters with O2 sats 96 %. Afebrile. SURGICAL SCRUB TECH consultation was noted. Today's lab work was reviewed, chest x-ray shows increased density in the right lower lobe, which may reflect developing infiltrate. Scattered areas of infiltrate present in the right lower lobe noted on CTA chest from 03/20/2017. Clinically patient is negative for any constitutional symptoms, no fevers, no chest congestion, lung sounds are diminished over right lower lobe, clear lung sounds on the left. Minimal vaginal spotting. Objective - Vital Signs Vital signs: Vital Signs Temp 97.8 F 03/27/17 07:00 Pulse 77 03/27/17 08:00 Resp 18 03/27/17 08:00 BP 100/56 03/27/17 07:00 Pulse Ox 96 03/27/17 07:00 Intake & Output 03/26/17 03/27/17 03/27/17 18:59 06:59 18:59 Intake Total 160 320 Balance 160 320 Intake: IV 160 320 Sodium Chloride 0.9% 500 160 320 ml @ 20 mls/hr IV .Q24H [facility] Rx#:[id number] Other: Voiding Method Bedside Commode Bedside Commode Bedside Commode # Voids 1 - Exam No acute distress, oriented 3. HEENT examination is grossly unremarkable. Mucous membranes are moist. No oral lesions. Neck supple. Full range of motion. No adenopathy thyromegaly or neck vein distention. Cardiovascular examination reveals regular rhythm rate. S1-S2 normal. No S3 or S4. No discernible murmur noted. Lungs reveal clear breath sounds. Somewhat diminished over right lower lobe. No adventitious lung sounds including wheezes rhonchi or crackles. Abdomen soft bowel sounds are heard. No masses or tenderness. Extremities reveal that the right lower extremity is in a cast. The left lower extremity is normal. Again there was no evidence of any DVT in the right lower extremity.. Skin is without rash or lesion. Neurologic examination is brief but nonfocal. - Labs CBC & Chem 7: 03/27/17 08:12 03/25/17 18:22 Labs: Abnormal Lab Results - Last 24 Hours (Table) 03/27/17 Range/Units 08:12 Hgb 11.0 L (11.4-16.0) gm/dL Hct 33.2 L (34.0-46.0) % Assessment and Plan Plan: Assessment: #1. Acute bilateral pulmonary embolisms, with right sided involvement more than the left. 2-D echo shows no sign of right ventricular strain, right ventricular systolic pressure is normal at less than 35 mmHg, no evidence of pulmonary hypertension, trace tricuspid regurgitation was noted. Patient was initially started on heparin drip, she was then switched over to Eliquis #2. Acute dyspnea and sharp right-sided chest pain, secondary to the above, improving #3. Right bimalleolar ankle fracture, status post ORIF, on 03/17/2017, patient was discharged home on 03/18/2017, with no anticoagulation. Surgery was done at [facility] in [place] #4. Recent miscarriage, at the 18th week of gestation, the baby was estimated to have at the 15th week of gestation. Patient underwent induction and delivery. Denies any other history of miscarriages. Has 2 other healthy, living children, just 2-1/2 and 5 years old. Patient is now reporting some small amount of vaginal bleeding #5. Lifetime nonsmoker #6. Opiate-induced constipation, improved Plan: Patient has not had any further episodes of hemoptysis, remains stable, denies worsening dyspnea. On room air, maintaining good oxygenation. Minimal pleuritic chest pain. Continue anticoagulation with Eliquis. Today's chest x- ray was reviewed, shows increased density in the right lower lobe, which was previously noted on the CT chest from 03/20/2017 and could possibly be an area of pulmonary infarction secondary to the pulmonary emboli. From pulmonary standpoint patient can be discharged home today, will follow-up with Dr. Araiza in one week. She will need anticoagulation for at least 6 months, depending on her recovery from the right ankle fracture. SURGICAL SCRUB TECH consult was noted. I performed a history & physical examination of the patient and discussed their management with my nurse practitioner, Gabriela Guevara. I reviewed the nurse practitioner's note and agree with the documented findings and plan of care. Lung sounds are positive for diminished breath sounds.The findings and the impression was discussed with the patient. I attest to the documentation by the nurse practitioner. Time with Patient: Less than 30
[2017-03-27 16:39] VITALS: PULSE 72; RESP 16
[2017-03-29] MEDS ORDERED: APIXABAN 5 MG TAB PO SCH (09:00)
--- NOTE | 2017-04-14 06:40 | DS ---
DISCHARGE SUMMARY DATE OF ADMISSION: 03/20/2017 DATE OF DISCHARGE: 03/27/2017 ADMISSION DIAGNOSES: Admission diagnoses on this patient were: 1. Provoked acute bilateral pulmonary embolism. 2. Accidental fall with recent right bimalleolar fracture, status post repair. 3. Recent miscarriage. 4. Constipation. BRIEF HISTORY ON THIS PATIENT: A 31-year-old female patient who had bimalleolar fracture on the right after an accidental fall. The patient had surgery done on 03/17/2017, came to the ER on the , complaining of right-sided chest pain. The patient claimed that when she woke up she felt chest discomfort and difficulty breathing, which continued to get progressively worse for which she decided to come to ED. PAST MEDICAL HISTORY: 1. Stillbirth 02/28/2017. 2. Right ankle fracture with surgical repair 03/17/2017. 3. History of constipation. HOME MEDICATIONS: 1. Colace 100 mg daily. 2. MiraLAX 17 gm daily. 3. Oxycodone, Percocet 5/325, one to two tablets q.4 to 6 hours p.r.n. PHYSICAL EXAMINATION: On physical examination, patient was awake, alert, oriented, in respiratory distress. VITAL SIGNS: Upon admission, temperature 98.3, pulse 105, respiration 20, blood pressure 122/82, O2 saturation 100%. HEENT: Atraumatic, normocephalic. Pupils equal and react to light. Extraocular movements intact. Buccal mucosa fair. NECK: Supple. No goiter or lymphadenopathy. JVD negative. No carotid bruit heard. LUNGS: Clear to auscultate with scattered rhonchi. HEART: Regular rate and rhythm without any murmurs or gallop rhythm. ABDOMEN: Soft, nontender, nondistended. Bowel sounds positive. EXTREMITIES: No edema, clubbing, cyanosis. LABS: CBC white blood count of 8.8, hemoglobin 12.1, hematocrit 37.3, and platelet count of 217. Chemical profile sodium 141, potassium 4.1, chloride 103, bicarb 30, BUN 11, creatinine 0.6, glucose 99. BRIEF HOSPITAL COURSE: Patient was admitted to telemetry, was started on IV heparin with IV pain medication and was put on bowel regimen because of constipation. Pulmonary service was consulted. The patient did show improvement with above treatment. She showed marked improved and plan was to discharge her in 24 to 48 hours. Around discharge planning patient started having small amount of hemoptysis and vaginal bleed. OB, gynecology service was consulted. The patient's hemoptysis was designated most likely secondary to PE. IV heparin was discontinued. She was started on Eliquis. [employer] service did see the patient and patient was not recommended any further workup since she had spontaneous vaginal delivery and spotting was thought to be secondary to blood thinners versus the delivery and was recommended to do pelvic ultrasound and discharge if stable. Patient did not have any complications. She was then discharged in a stable condition with a plan to follow up with the pulmonary service, gynecology and primary care post discharge. DISCHARGE MEDICATIONS: 1. Eliquis 10 mg b.i.d. 2. Colace 100 mg daily p.r.n. 3. MiraLAX 17 grams daily p.r.n. 4. Percocet 1 to 2 tabs 4 to 6 hours p.r.n. MMMIAL / EMILYN: [id number] / MTDD
== END 2017-03-27 18:05 | disposition home or self-care (01) | DRG 301 ==
LOC: EC 09:12 → 5MS5E 14:03
PROVIDERS: ADMIT Internal Medicine; ATTEND Internal Medicine
DX: T81.718A Complication of other artery following a procedure, not elsewhere classified, initial encounter (principal); I26.99 Other pulmonary embolism without acute cor pulmonale; Y83.8 Other surgical procedures as the cause of abnormal reaction of the patient, or of later complication, without mention of misadventure at the time of the procedure; K59.03 Drug induced constipation; T40.2X5A Adverse effect of other opioids, initial encounter
CPT/HCPCS: 36415; 71046; 71275; 76830; 80048; 80053; 82550; 82553; 83735; 84484; 84702; 85025; 85610; 85730; 93005; 93306; 93970; 94760; 96365; 96366; 96375; 96376; 99285

== ENCOUNTER → 2017-05-26 | Outpatient (CLI) | payer OTHER ==
--- NOTE | 2017-05-26 11:35 | CT ---
EXAMINATION TYPE: CT angio chest DATE OF EXAM: 05/26/2017 11:21 AM COMPARISON: 03/20/2017 HISTORY: Patient has no complaints at time of study. Patient has a history of PE. CT DLP: 436 mGycm Automated exposure control for dose reduction was used. CONTRAST: CTA scan of the thorax is performed with IV Contrast, patient injected with 100 mL of Isovue 370, pul monary embolism protocol. . FINDINGS: LUNGS: Subsegmental changes are seen involving the right lung base suggestive of scar or atelectasis. No pneumothorax. No pleural effusion.. MEDIASTINUM: There is satisfactory enhancement of the pulmonary artery and its branches, there is no CT evidence for pulmonary embolism. There are no greater than 1 cm hilar or mediastinal lymph nodes. No pericardial effusion is seen. OTHER: No additional significant abnormality is seen. IMPRESSION: INTERVAL RESOLUTION OF BILATERAL PULMONARY EMBOLISM.
== END | disposition home or self-care (01) ==
LOC: RADCTMAIN 10:41
PROVIDERS: ATTEND Internal Medicine Critical Care Medicine
DX: I26.99 Other pulmonary embolism without acute cor pulmonale (principal)
CPT/HCPCS: 71275; Q9967